=== PATIENT | male | born 1955 | race Caucasian/White ===

== ENCOUNTER 2018-07-31 09:00 | Emergency (ER) | payer MEDICAID ==
[2018-07-31 09:45] VITALS: BP 152/92
--- NOTE | 2018-07-31 14:19 | CT ---
DATE OF SERVICE: 07/31/18 CLINICAL DATA: Chest congestion, chronic cough. UNENHANCED CHEST CT: Multislice acquisition through the chest without IV contrast was performed. No priors. Breathing motion artifact degrades image quality. There is poorly defined ground glass opacity within the right upper lobe, most likely representing pneumonia. There are emphysematous changes throughout both lungs. There are mild atelectatic changes in both lung bases. The lungs otherwise clear. There is a small right pleural effusion. The heart size is within normal limits. There are coronary artery calcifications. No significant pericardial effusion. No aortic aneurysm. There is an enlarged lymph node in the retrocaval pretracheal space. It measures 13 mm in its short axis. There is also an enlarged lymph node in the subcarinal middle mediastinum measuring 21 mm in its short axis. These may be reactive. Other possibilities, including lymphoma or metastatic disease, should at least be considered. There is a small hiatal hernia. No other significant findings. IMPRESSION: Multiple findings as discussed above. Followup is recommended to confirm resolution. UNENHANCED ABDOMEN AND PELVIC CT: Multislice acquisition through the abdomen and pelvis without IV or oral contrast was performed. No priors. There is a small right pleural effusion. The unenhanced liver appears normal. The gallbladder appears normal. The spleen appears normal. The pancreas appears normal. The right and left adrenals appear normal. The right and left kidneys appear normal. No nephrocalcinosis or nephrolithiasis. No hydronephrosis or hydroureter. There is a small amount of fluid within the bladder. It appears normal. The prostate is mildly enlarged. There are calcifications within the prostate consistent with chronic prostatitis. The appendix is not dilated. No evidence of appendicitis. There is diverticulosis of the descending and sigmoid colon. No evidence of diverticulitis. There is a periumbilical ventral hernia containing fat. There is also an umbilical hernia containing fat. No evidence of incarceration. There are bilateral inguinal hernias containing fat. There is degenerative disk disease throughout the lower thoracic and lumbar spine. No aortic aneurysm. No free air. No free fluid. No dilated loops of bowel. No adenopathy. IMPRESSION: 1. Periumbilical ventral hernia containing fat. Umbilical hernia containing fat. Bilateral inguinal hernias containing fat. No evidence of incarceration. 2. Other findings as discussed above. [id number] [facility]
--- NOTE | 2018-07-31 14:48 | EDM.PDOC ---
ED HPI GENERAL MEDICAL PROBLEM - General Stated Complaint: abdominal pain Time Seen by Provider: 07/31/18 09:00 Source of Information: Reports: Patient History Limitations: Reports: No Limitations - History of Present Illness INITIAL COMMENTS - FREE TEXT/NARRATIVE: This is a 63yo M here for abdominal pain and discomfort. He has had slowing BM and states he feels obstructed and unable to go. His last BM was last night and states it was difficult and hard. He has had a hernia but states he feels it may have popped out more and is worried about the hernia causing him bowel issues and obstruction. He also has a cough and chest congestion that has been persistent and has not improved the past month. Onset: Unknown/Unsure Duration: Hour(s): Location: Reports: Abdomen Quality: Reports: Ache Severity: Moderate Improves with: Reports: None Worsens with: Reports: None Associated Symptoms: Reports: Loss of Appetite - Related Data Allergies Allergy/AdvReac Type Severity Reaction Status Date / Time No Known Allergies Allergy Verified 08/08/16 14:17 Home Meds: Home Meds Levothyroxine [Synthroid] 50 mcg PO ACBREAKFAST 04/06/15 [History] Ipratropium/Albuterol Sulfate [Iprat-Albut 0.5-3(2.5) mg/3 ml] 3 ml IN BID 07/31 [History] Testosterone Cypionate 400 mg IM ASDIRECTED 07/31/18 [History] ED ROS GENERAL - Review of Systems Review Of Systems: ROS reveals no pertinent complaints other than HPI. ED EXAM, GI/ABD - Physical Exam Exam: See Below Exam Limited By: No Limitations General Appearance: Alert, WD/WN Course - Vital Signs Last Recorded V/S: Last Vital Signs Temp 37.3 C 07/31/18 09:42 Pulse 112 H 07/31/18 09:42 Resp 24 H 07/31/18 09:42 BP 152/92 H 07/31/18 09:42 Pulse Ox 94 L 07/31/18 09:42 - Orders/Labs/Meds Labs: Laboratory Tests 07/31/18 07/31/18 Range/Units 09:45 09:45 WBC 11.8 H (4.0-11.0) K/uL RBC 6.73 H (4.50-6.50) M/uL Hgb 18.7 H* (13.0-18.0) g/dL Hct 57.3 H (40.0-54.0) % MCV 85 (76-96) fL MCH 27.8 (27.0-32.0) pg MCHC 32.6 (31.0-35.0) g/dL RDW 18.8 H (11.0-16.0) % Plt Count 157 (150-400) K/uL MPV 11.2 H (6.0-10.0) fL Neut % (Auto) 77.5 H (45.0-70.0) % Lymph % (Auto) 11.8 L (20.0-40.0) % [place] % (Auto) 9.8 (3.0-10.0) % Eos % (Auto) 0.8 L (1.0-5.0) % Baso % (Auto) 0.1 (0.0-0.5) % Neut # (Auto) 9.11 H (2.00-7.50) K/uL Lymph # (Auto) 1.39 L (1.50-4.00) K/uL [place] # (Auto) 1.15 H (0.20-0.80) K/uL Eos # (Auto) 0.09 (0.04-0.40) K/uL Baso # (Auto) 0.01 L (0.02-0.10) K/uL Sodium 140 (136-145) mmol/L Potassium 4.5 (3.5-5.1) mmol/L Chloride 103 (98-107) mmol/L Carbon Dioxide 27.8 (21.0-32.0) mmol/L Anion Gap 13.7 (5.0-15.0) mmol/L BUN 12 (8-26) mg/dL Creatinine 1.22 (0.70-1.30) mg/dL Est Cr Clr Drug Dosing TNP Estimated GFR (MDRD) 60 (>60) MLS/MIN BUN/Creatinine Ratio 9.8 (6-25) Glucose 128 H (74-100) mg/dL Calcium 8.7 (8.5-10.1) mg/dL Total Bilirubin 1.6 H D (0.0-1.0) mg/dL AST 29 (15-37) U/L ALT 15 (12-78) U/L Alkaline Phosphatase 68 (46-116) U/L Total Protein 7.9 (6.4-8.2) g/dL Albumin 3.7 (3.4-5.0) g/dL Globulin 4.2 (2.2-4.2) g/dL Albumin/Globulin Ratio 0.9 (0.8-2.0) Departure - Departure Time of Disposition: 10:30 Disposition: Home, Self-Care 01 Condition: Good Clinical Impression: Abdominal hernia without obstruction or gangrene Qualifiers: Hernia type: other abdominal hernia Qualified Code(s): K45.8 - Other specified abdominal hernia without obstruction or gangrene Pneumonia Qualifiers: Pneumonia type: due to unspecified organism Laterality: left Lung location: upper lobe of lung Qualified Code(s): J18.1 - Lobar pneumonia, unspecified organism - Discharge Information Instructions: Levofloxacin tablets Referrals: PCP,Unknown [Primary Care Provider] - Care Plan Goals: Take 750mg Levofloxin daily for 14 days. will let you know if any problems with CT of chest. Return to clinic if symptoms do not resolve. Drink plenty of fluids. - Problem List & Annotations (1) Abdominal hernia without obstruction or gangrene SNOMED Code(s): 61708153 Code(s): K46.9 - UNSPECIFIED ABDOMINAL HERNIA WITHOUT OBSTRUCTION OR GANGRENE Status: Acute Priority: High Qualifiers: Hernia type: other abdominal hernia Qualified Code(s): K45.8 - Other specified abdominal hernia without obstruction or gangrene (2) Pneumonia SNOMED Code(s): 184104981 Code(s): J18.9 - PNEUMONIA, UNSPECIFIED ORGANISM Status: Acute Priority: High Qualifiers: Pneumonia type: due to unspecified organism Laterality: left Lung location: upper lobe of lung Qualified Code(s): J18.1 - Lobar pneumonia, unspecified organism - Problem List Review Problem List Initiated/Reviewed/Updated: Yes - Assessment/Plan Plan: Counseled on hernia and pneumonia. Discussed management, monitoring and close f/ u. Discussed rtc or ER as directed for worsening or persistent symptoms. F/u as directed.
== END 2018-07-31 10:00 | disposition home or self-care (01) ==
LOC: LB.ED 09:00
DX: K45.8 Other specified abdominal hernia without obstruction or gangrene (principal); J18.1 Lobar pneumonia, unspecified organism
CPT/HCPCS: 36415; 71250; 74176; 80053; 85025; 99284-25

== ENCOUNTER 2018-09-14 14:14 | Emergency (ER) | payer MEDICAID ==
[2018-09-14 14:40] VITALS: BP 113/85
--- NOTE | 2018-09-14 17:10 | EDM.PDOC ---
ED HPI GENERAL MEDICAL PROBLEM - General Chief Complaint: Allergic Reaction Stated Complaint: HIVES Time Seen by Provider: 09/14/18 14:30 Source of Information: Reports: Patient History Limitations: Reports: No Limitations - History of Present Illness INITIAL COMMENTS - FREE TEXT/NARRATIVE: This is a 63yo M with a new onset rash of the body. He states it started a day ago and got worse. He did take some benadryl and that helped. He denies any breathing issues out of the normal, no other health concerns today. The rash is on the abdomen, back and arms. - Related Data Allergies Allergy/AdvReac Type Severity Reaction Status Date / Time No Known Allergies Allergy Verified 08/08/16 14:17 Home Meds: Home Meds Levothyroxine [Synthroid] 50 mcg PO ACBREAKFAST 04/06/15 [History] Ipratropium/Albuterol Sulfate [Iprat-Albut 0.5-3(2.5) mg/3 ml] 3 ml IN BID 07/31 [History] Testosterone Cypionate 400 mg IM ASDIRECTED 07/31/18 [History] ED ROS ALLERGIC REACTION - Review of Systems Review Of Systems: ROS reveals no pertinent complaints other than HPI. ED EXAM GENERAL NO PERIP PULSE - Physical Exam Exam: See Below Exam Limited By: No Limitations General Appearance: Alert, WD/WN, Mild Distress Ears: Normal External Exam Nose: Normal Inspection Throat/Mouth: Normal Inspection Head: Atraumatic, Normocephalic Neck: Normal Inspection, Supple, Non-Tender, Full Range of Motion Respiratory/Chest: No Respiratory Distress, Lungs Clear, Normal Breath Sounds, No Accessory Muscle Use, Chest Non-Tender Cardiovascular: Normal Peripheral Pulses, Regular Rate, Rhythm GI/Abdominal: Normal Bowel Sounds, Soft, Non-Tender Neurological: Alert, Oriented Psychiatric: Normal Affect, Normal Mood Skin Exam: Rash Lymphatic: No Adenopathy Course - Vital Signs Last Recorded V/S: Last Vital Signs Temp 36.4 C 09/14/18 14:32 Pulse 104 H 09/14/18 14:32 Resp 22 H 09/14/18 14:32 BP 113/85 09/14/18 14:32 Pulse Ox 96 09/14/18 14:32 Departure - Departure Time of Disposition: 15:00 Disposition: Home, Self-Care 01 Condition: Good Clinical Impression: Hives - Discharge Information Instructions: Montelukast oral tablets, Loratadine capsules or tablets Referrals: PCP,None [Primary Care Provider] - Forms: ED Department Discharge Additional Instructions: Take Singulair once a day, claritin twice a day, and take 50mg of Benadryl twice a day until the rash is better and you are feeling better. Continue your regualr home medications and follow up as needed. - Problem List & Annotations (1) Hives SNOMED Code(s): 509854727 Code(s): L50.9 - URTICARIA, UNSPECIFIED Status: Acute - Problem List Review Problem List Initiated/Reviewed/Updated: Yes - Assessment/Plan Plan: Counseled on supportive care and management. Meds sent to [facility]. Patient to f/u if symptoms worsen or persist.
== END 2018-09-14 14:44 | disposition home or self-care (01) ==
LOC: LB.ED 14:14
DX: L50.9 Urticaria, unspecified (principal); Z79.899 Other long term (current) drug therapy
CPT/HCPCS: 99282

== ENCOUNTER 2018-09-20 00:19 | Emergency (ER) | payer MEDICAID ==
[2018-09-20] MEDS ORDERED: predniSONE 10 MG Tab ONE (00:20)
[2018-09-20 00:44] VITALS: BP 127/89
[2018-09-20] MEDS ORDERED: methylPREDNISolone Sodium Succinate 125 MG/2 ML SDV IM ONE (01:12)
[2018-09-20] MEDS ORDERED: methylPREDNISolone Sodium Succinate 125 MG/2 ML SDV ONE (01:20)
--- NOTE | 2018-09-21 07:49 | EDM.PDOC ---
ED HPI GENERAL MEDICAL PROBLEM - General Chief Complaint: Skin Complaint Stated Complaint: EDEMATOUS LEGS, RASH Time Seen by Provider: 09/20/18 01:00 Source of Information: Reports: Patient History Limitations: Reports: No Limitations - History of Present Illness INITIAL COMMENTS - FREE TEXT/NARRATIVE: This is a 63yo M here for a worsening rash. It is on the trunk, abdomen, arms and legs. Not on the face, hands or feet. It started like hives and now appears worse with excoriations. He states he has been off phentermine and furosemide as those medications were thought to have started his hives. He has not tried anything new and has been taking benadryl which has been improving the symptoms. The rash is so sensitive he has to take all his clothes off and stand for relief. Onset: Gradual Duration: Day(s):, Getting Worse Location: Reports: Chest, Abdomen, Back, Upper Extremity, Left, Upper Extremity , Right, Lower Extremity, Left, Lower Extremity, Right Improves with: Reports: None Worsens with: Reports: None Generalized All Over Body Pain Score (Numeric/FACES): 8 - Related Data Allergies Allergy/AdvReac Type Severity Reaction Status Date / Time No Known Allergies Allergy Verified 09/20/18 00:36 Home Meds: Home Meds Levothyroxine [Synthroid] 50 mcg PO ACBREAKFAST 04/06/15 [History] Ipratropium/Albuterol Sulfate [Iprat-Albut 0.5-3(2.5) mg/3 ml] 3 ml IN Q4HR PRN 07/31/18 [History] Testosterone Cypionate 400 mg IM ASDIRECTED 07/31/18 [History] Loratadine 10 mg PO BID 09/20/18 [History] Montelukast Sodium 10 mg PO DAILY 09/20/18 [History] diphenhydrAMINE HCl [Banophen] 50 mg PO QPM 09/20/18 [History] Past Medical History HEENT History: Reports: Impaired Vision Respiratory History: Reports: COPD Gastrointestinal History: Reports: Chronic Constipation, Other (See Below) Other Gastrointestinal History: hernia Endocrine/Metabolic History: Reports: Hypothyroidism - Infectious Disease History Infectious Disease History: Reports: Hepatitis C - Past Surgical History HEENT Surgical History: Reports: None Respiratory Surgical History: Reports: None GI Surgical History: Reports: Hernia, Inguinal Social & Family History - Tobacco Use Smoking Status *Q: Former Smoker Used Tobacco, but Quit: Yes Month/Year Tobacco Last Used: 2005 - Recreational Drug Use Recreational Drug Use: No ED ROS GENERAL - Review of Systems Review Of Systems: ROS reveals no pertinent complaints other than HPI. ED EXAM, SKIN/RASH Exam: See Below Exam Limited By: No Limitations General Appearance: Alert, WD/WN, Moderate Distress Eye Exam: Bilateral Eye: EOMI, PERRL Ears: Normal External Exam Nose: Normal Inspection Throat/Mouth: Normal Inspection Head: Atraumatic, Normocephalic Neck: Normal Inspection Respiratory/Chest: No Respiratory Distress, Lungs Clear, Normal Breath Sounds Cardiovascular: Normal Peripheral Pulses, Regular Rate, Rhythm Peripheral Pulses: 2+: Dorsalis Pedis (L), Dorsalis Pedis (R) GI/Abdominal: Normal Bowel Sounds Back Exam: Normal Inspection Extremities: Normal Inspection, Normal Range of Motion Neurological: Alert, Oriented, CN II-XII Intact Psychiatric: Normal Affect, Normal Mood Skin: Rash, Other (blanching, maculopapular areas of urticaria and excoriations) Course - Vital Signs Last Recorded V/S: Last Vital Signs Temp 36.7 C 09/20/18 00:43 Pulse 103 H 09/20/18 00:43 Resp 20 09/20/18 00:43 BP 127/89 09/20/18 00:43 Pulse Ox 97 09/20/18 00:43 - Orders/Labs/Meds Meds: Medications Discontinued Medications Generic Name Dose Route Start Last Admin Trade Name Kell PRN Reason Stop Dose Admin Methylprednisolone Sodium Succinate 125 mg 09/20/18 01:12 09/20/18 01:33 Solu-Medrol IM 09/20/18 01:13 125 mg ONETIME ONE Administration Methylprednisolone Sodium Succinate Confirm 09/20/18 01:20 09/20/18 01:34 Solu-Medrol Administered 09/20/18 01:21 Not Given Dose 125 mg .ROUTE .STK-MED ONE Departure - Departure Time of Disposition: 02:00 Disposition: Home, Self-Care 01 Condition: Good Clinical Impression: Urticaria - Discharge Information Instructions: Hives, [id number], Prednisone tablets Referrals: PCP,None [Primary Care Provider] - Forms: ED Department Discharge Additional Instructions: Take Prednisone taper dose as prescribed. STOP Singulair and continue not taking the Furosemide. If this is not better by Friday come back be seen and Dr. Treviño will likely hospitalize you. You can try Calomine lotion or any cream with Lidocaine to help with Come back if you develop any chest pain, shortness of breath, difficulty swallowing, or fever above 100.4F. - Problem List & Annotations (1) Urticaria SNOMED Code(s): 155982849 Code(s): L50.9 - URTICARIA, UNSPECIFIED Status: Acute - Problem List Review Problem List Initiated/Reviewed/Updated: Yes - Assessment/Plan Plan: Counseled on concerns of rash turning into a Weiss-Lonnie syndrome or toxic dermal necrolysis. Discussed close monitoring and f/u in ER or clinic if symptoms persist or worse. Discussed immediate return if any sloughing of skin or changes. We will start prednisone and give Solumedrol IM injection. Discussed f/u as directed. Counseled on supportive care and management.
== END 2018-09-20 01:40 | disposition home or self-care (01) ==
LOC: LB.ED 00:19
DX: L50.9 Urticaria, unspecified (principal); J44.9 Chronic obstructive pulmonary disease, unspecified; E03.9 Hypothyroidism, unspecified; Z79.899 Other long term (current) drug therapy; Z87.891 Personal history of nicotine dependence
CPT/HCPCS: 96372; 99282; A9270-GY; J2930

== ENCOUNTER 2018-10-06 08:49 | Emergency (ER) | payer MEDICAID ==
[2018-10-06] MEDS ORDERED: Albuterol/Ipratropium 3.0-0.5 MG/3 ML Neb Soln ONE (09:25)
--- NOTE | 2018-10-06 10:38 | EDM.PDOC ---
ED HPI GENERAL MEDICAL PROBLEM - General Time Seen by Provider: 10/06/18 09:00 Source of Information: Reports: Patient History Limitations: Reports: No Limitations - History of Present Illness INITIAL COMMENTS - FREE TEXT/NARRATIVE: 63 year old male present to emergency room with shortness of breath, which he claims got worse today morning. Woke up and was getting ready to go to [place] for his pulmonary appointment when he started to feel short of breath. No chest pain or chest tightness. No nausea or vomiting. No fever or chills. Patient he claims that he has had progressive shortness of breath which started in May which has progressively got worse. He did have CT of the chest which shows B/l infiltrates. He did have [facility] evaluation today for bronchoscopy, but he could not make it there due to shortness of breath. Onset: Today, Sudden Onset Date: 10/06/18 Onset Time: 07:00 Duration: Improving Location: Reports: Chest Quality: Reports: Other (shortness of breath.) Severity: Mild Improves with: Reports: None Worsens with: Reports: None Associated Symptoms: Reports: Shortness of Breath. Denies: Confusion, Chest Pain, Cough, Fever/Chills, Headaches, Nausea/Vomiting, Rash, Seizure, Syncope, Weakness - Related Data Allergies Allergy/AdvReac Type Severity Reaction Status Date / Time No Known Allergies Allergy Verified 09/20/18 00:36 Home Meds: Home Meds Levothyroxine [Synthroid] 50 mcg PO ACBREAKFAST 04/06/15 [History] Ipratropium/Albuterol Sulfate [Iprat-Albut 0.5-3(2.5) mg/3 ml] 3 ml IN Q4HR PRN 07/31/18 [History] Testosterone Cypionate 400 mg IM ASDIRECTED 07/31/18 [History] Past Medical History HEENT History: Reports: Impaired Vision Respiratory History: Reports: COPD Gastrointestinal History: Reports: Chronic Constipation, Other (See Below) Other Gastrointestinal History: hernia Endocrine/Metabolic History: Reports: Hypothyroidism - Infectious Disease History Infectious Disease History: Reports: Hepatitis C - Past Surgical History HEENT Surgical History: Reports: None Respiratory Surgical History: Reports: None GI Surgical History: Reports: Hernia, Inguinal ED ROS GENERAL - Review of Systems Review Of Systems: See Below Constitutional: Denies: Fever, Chills, Malaise, Weakness HEENT: Denies: Rhinitis, Throat Swelling Respiratory: Reports: Shortness of Breath. Denies: Wheezing, Pleuritic Chest Pain, Cough, Sputum Cardiovascular: Denies: Chest Pain, Lightheadedness GI/Abdominal: Denies: Abdominal Pain, Nausea, Vomiting Musculoskeletal: Denies: Joint Pain, Joint Swelling Skin: Denies: Bruising, Pruritis, Rash ED EXAM, GENERAL - Physical Exam Exam: See Below Exam Limited By: No Limitations General Appearance: Alert, WD/WN, No Apparent Distress Eye Exam: Bilateral Eye: EOMI, PERRL Ears: Normal External Exam, Normal Canal, Hearing Grossly Normal, Normal TMs Ear Exam: Bilateral Ear: Auricle Normal, Canal Normal, TM normal Nose: Normal Inspection, Normal Mucosa, No Blood Throat/Mouth: Normal Inspection, Normal Lips, Normal Teeth, Normal Gums, Normal Oropharynx, Normal Voice, No Airway Compromise Head: Atraumatic, Normocephalic Neck: Normal Inspection, Supple, Non-Tender, Full Range of Motion Respiratory/Chest: No Respiratory Distress, No Accessory Muscle Use, Chest Non- Tender, Decreased Breath Sounds (B/L base and also anterior chest) Cardiovascular: Normal Peripheral Pulses, Regular Rate, Rhythm, No Edema, No Gallop, No JVD, No Murmur, No Rub GI/Abdominal: Normal Bowel Sounds, Soft, Non-Tender, No Organomegaly, No Distention, No Abnormal Bruit, No Mass Extremities: Other (Chronic non pitting edema of the legs which appears chronic with lymphedema. there is ichytotic changes in the skin over the leg.) Neurological: Alert, Oriented, CN II-XII Intact, Normal Cognition EKG INTERPRETATION EKG Date: 10/06/18 Rhythm: NSR Rate (Beats/Min): 107 [place]: Normal P-Wave: Present QRS: Normal ST-T: Normal Course - Vital Signs Text/Narrative:: 63 year old male presents to emergency room with shortness of breath. His respiratory rate is normal around 16 breath per minutes. Does not appear in any respiratory distress. He is morbidly obese. His EKG does not show any acute changes. He did receive Duoneb one treatment. Labs order. Pt's CBC is normal, CMP show creat at 1.4 and normal BUN and electrolytes. D- Dimer is 227o and his BNP is 6874. His troponin is negative. Pt has been very stable in the emergency room. He does not appear to be any discomfort or shortness of breath presently. His elevated BNP might be related to chronic CHF , as he has had lower extremity edema for a long time now and has tried Lasix and had reaction. He did have Ct angiogram of the chest, which is negative for Pulmonary embolism. Pt did receive Normal bolus post CT as his GFR is 51 ml. Pt is stable and symptomatic. Pt reassured that the work up is negative. His shortness of breath is chronic. He might have had mild worsening in the morning , but has remained stable in the emergency room. Considering his elevated BNP , and chronic lower extremity edema, I have started him on spironolactone 50mg in the morning daily. Also will get [facility] cardiogram of the heart done as outpatient. I have advised him to followup with his regional economist, and should [facility]heck. Last Recorded V/S: Last Vital Signs Temp 98 F 10/06/18 12:26 Pulse 99 10/06/18 12:26 Resp 12 10/06/18 12:26 BP 120/106 H 10/06/18 12:26 Pulse Ox 97 10/06/18 12:26 - Orders/Labs/Meds Orders: Active Orders 24 hr Category Date Time Status EKG Documentation Completion [RC] ASDIRECTED Care 10/06/18 09:35 Active Iodixanol [Visipaque 320] Med 10/06/18 12:30 Active 100 ml IV . DIRECTED Sodium Chloride 0.9% [Normal Saline] 1,000 ml Med 10/06/18 12:30 Active IV ASDIRECTED Medication Orders Sodium Chloride (Normal Saline) 1,000 mls @ 175 mls/hr IV ASDIRECTED HANNAH Iodixanol (Visipaque 320) 100 ml IV . DIRECTED HANNAH Labs: Laboratory Tests 10/06/18 10/06/18 10/06/18 Range/Units 09:34 09:34 10:00 WBC 10.9 (4.0-11.0) K/uL RBC 6.12 (4.50-6.50) M/uL Hgb 17.1 (13.0-18.0) g/dL Hct 52.9 (40.0-54.0) % MCV 86 (76-96) fL MCH 27.9 (27.0-32.0) pg MCHC 32.3 (31.0-35.0) g/dL RDW 21.2 H (11.0-16.0) % Plt Count 103 L D (150-400) K/uL MPV 11.9 H (6.0-10.0) fL Neut % (Auto) 81.8 H (45.0-70.0) % Lymph % (Auto) 9.0 L (20.0-40.0) % [place] % (Auto) 8.0 (3.0-10.0) % Eos % (Auto) 1.0 (1.0-5.0) % Baso % (Auto) 0.2 (0.0-0.5) % Neut # (Auto) 8.89 H (2.00-7.50) K/uL Lymph # (Auto) 0.98 L (1.50-4.00) K/uL [place] # (Auto) 0.87 H (0.20-0.80) K/uL Eos # (Auto) 0.11 (0.04-0.40) K/uL Baso # (Auto) 0.02 (0.02-0.10) K/uL PT 13.3 H D (9.0-11.5) sec INR 1.4 D (1.0-3.5) APTT 25.1 (24.4-33.2) SECONDS D-Dimer, Quantitative (0-400) ng/mL Sodium (136-145) mmol/L Potassium (3.5-5.1) mmol/L Chloride (98-107) mmol/L Carbon Dioxide (21.0-32.0) mmol/L Anion Gap (5.0-15.0) mmol/L BUN (8-26) mg/dL Creatinine (0.70-1.30) mg/dL Est Cr Clr Drug Dosing Estimated GFR (MDRD) (>60) MLS/MIN BUN/Creatinine Ratio (6-25) Glucose (74-100) mg/dL Calcium (8.5-10.1) mg/dL Total Bilirubin (0.0-1.0) mg/dL AST (15-37) U/L ALT (12-78) U/L Alkaline Phosphatase (46-116) U/L Troponin I (0.000-0.060) ng/mL B-Natriuretic Peptide 6874 H D (0-125) pg/mL Total Protein (6.4-8.2) g/dL Albumin (3.4-5.0) g/dL Globulin (2.2-4.2) g/dL Albumin/Globulin Ratio (0.8-2.0) 10/06/18 10/06/18 Range/Units 10:00 10:37 WBC (4.0-11.0) K/uL RBC (4.50-6.50) M/uL Hgb (13.0-18.0) g/dL Hct (40.0-54.0) % MCV (76-96) fL MCH (27.0-32.0) pg MCHC (31.0-35.0) g/dL RDW (11.0-16.0) % Plt Count (150-400) K/uL MPV (6.0-10.0) fL Neut % (Auto) (45.0-70.0) % Lymph % (Auto) (20.0-40.0) % [place] % (Auto) (3.0-10.0) % Eos % (Auto) (1.0-5.0) % Baso % (Auto) (0.0-0.5) % Neut # (Auto) (2.00-7.50) K/uL Lymph # (Auto) (1.50-4.00) K/uL [place] # (Auto) (0.20-0.80) K/uL Eos # (Auto) (0.04-0.40) K/uL Baso # (Auto) (0.02-0.10) K/uL PT (9.0-11.5) sec INR (1.0-3.5) APTT (24.4-33.2) SECONDS D-Dimer, Quantitative 2270 H (0-400) ng/mL Sodium 141 (136-145) mmol/L Potassium 4.8 (3.5-5.1) mmol/L Chloride 103 (98-107) mmol/L Carbon Dioxide 29.5 (21.0-32.0) mmol/L Anion Gap 13.3 (5.0-15.0) mmol/L BUN 17 D (8-26) mg/dL Creatinine 1.40 H (0.70-1.30) mg/dL Est Cr Clr Drug Dosing TNP Estimated GFR (MDRD) 51 L (>60) MLS/MIN BUN/Creatinine Ratio 12.1 (6-25) Glucose 106 H (74-100) mg/dL Calcium 8.3 L (8.5-10.1) mg/dL Total Bilirubin 2.7 H D (0.0-1.0) mg/dL AST 28 (15-37) U/L ALT 18 (12-78) U/L Alkaline Phosphatase 69 (46-116) U/L Troponin I 0.046 D (0.000-0.060) ng/mL B-Natriuretic Peptide (0-125) pg/mL Total Protein 6.8 (6.4-8.2) g/dL Albumin 3.0 L (3.4-5.0) g/dL Globulin 3.8 (2.2-4.2) g/dL Albumin/Globulin Ratio 0.8 (0.8-2.0) Meds: Medications Generic Name Dose Route Start Last Admin Trade Name Freq PRN Reason Stop Dose Admin Sodium Chloride 1,000 mls @ 175 mls/hr 10/06/18 12:30 Normal Saline IV ASDIRECTED HANNAH Iodixanol 100 ml 10/06/18 12:30 Visipaque 320 IV . DIRECTED HANNAH Discontinued Medications Generic Name Dose Route Start Last Admin Trade Name Freq PRN Reason Stop Dose Admin Albuterol/Ipratropium Confirm 10/06/18 09:25 10/06/18 09:30 Duoneb 3.0-0.5 Mg/3 Ml Administered 10/06/18 09:26 3 ml Dose Administration 3 ml .ROUTE .STK-MED ONE Sodium Chloride 50 ml 10/06/18 12:26 Normal Saline FLUSH 10/06/18 12:27 ONETIME ONE Departure - Departure Time of Disposition: 14:30 Disposition: Home, Self-Care 01 Condition: Fair Clinical Impression: Shortness of breath, CHF (congestive heart failure), NYHA class I - Discharge Information *PRESCRIPTION DRUG MONITORING PROGRAM REVIEWED*: Not Applicable *COPY OF PRESCRIPTION DRUG MONITORING REPORT IN PATIENT DONALD: Not Applicable Referrals: PCP,None [Primary Care Provider] - Additional Instructions: Pt is stable and symptomatic. Pt reassured that the work up is negative. His shortness of breath is chronic. He might have had mild worsening in the morning , but has remained stable in the emergency room. Considering his elevated BNP , and chronic lower extremity edema, I have started him on spironolactone 50mg in the morning daily. Also will get [facility] cardiogram of the heart done as outpatient. I have advised him to followup with his regional economist, and should followup [facility] next week for recheck. - Problem List & Annotations (1) CHF (congestive heart failure), NYHA class I SNOMED Code(s): 48302281, 179628173 Code(s): I50.9 - HEART FAILURE, UNSPECIFIED Status: Acute Current Visit: Yes (2) Shortness of breath SNOMED Code(s): 778876620 Code(s): R06.02 - SHORTNESS OF BREATH Status: Acute Current Visit: Yes - Problem List Review Problem List Initiated/Reviewed/Updated: Yes - My Orders Last 24 Hours: My Active Orders 10/06/18 09:35 EKG Documentation Completion [RC] ASDIRECTED 10/06/18 12:30 Iodixanol [Visipaque 320] 100 ml IV . DIRECTED Sodium Chloride 0.9% [Normal Saline] 1,000 ml IV ASDIRECTED - Assessment/Plan Last 24 Hours: My Active Orders 10/06/18 09:35 EKG Documentation Completion [RC] ASDIRECTED 10/06/18 12:30 Iodixanol [Visipaque 320] 100 ml IV . DIRECTED Sodium Chloride 0.9% [Normal Saline] 1,000 ml IV ASDIRECTED Assessment:: Shortness of breath CHF Plan: Pt is stable and symptomatic. Pt reassured that the work up is negative. His shortness of breath is chronic. He might have had mild worsening in the morning , but has remained stable in the emergency room. Considering his elevated BNP , and chronic lower extremity edema, I have started him on spironolactone 50mg in the morning daily. Also will get [facility] cardiogram of the heart done as outpatient. I have advised him to followup with his regional economist, and should followup [facility] next week for recheck.
[2018-10-06] MEDS ORDERED: Sodium Chloride 0.9% 50 ML SDV FLUSH ONE (12:26)
[2018-10-06 12:30] VITALS: BP 120/106
[2018-10-06] MEDS ORDERED: Iodixanol 652 MG/ML 100 ML Bottle IV SCH (12:30)
[2018-10-06] MEDS ORDERED: Sodium Chloride 0.9% 1,000 ML IV SCH (12:30)
--- NOTE | 2018-10-06 13:48 | CR ---
DATE OF SERVICE: 10/06/18 CLINICAL DATA: SOB lower leg edema PA AND LATERAL CHEST: Comparison is made to a prior exam dated 11/12/13. The heart is enlarged. It has increased in size from the prior study. There is pulmonary vascular congestion and interstitial infiltrates throughout both lungs. Congestive failure is suspected. There are poorly defined ground-glass opacities in the left upper lobe and in both lower lungs with areas of consolidation bilaterally. Pneumonia is suspected. There is blunting of both costophrenic angles, consistent with bilateral pleural effusions. No other significant interval changes from the prior study. [id number] [facility]
--- NOTE | 2018-10-06 14:22 | CT ---
DATE OF SERVICE: 10/06/2018 CLINICAL DATA: Elevated D-Dimer Enhanced acquisition through the chest with IV contrast was performed. No priors. No evidence of PE. No pneumothorax. No aortic aneurysm or dissection. There are moderate-sized bilateral pleural effusions with loculated pleural effusions anteriorly bilaterally. There are patchy groundglass opacities with areas of consolidation in both upper lobes. There are also poorly defined groundglass opacities in the right middle lobe and left lower lobe with areas of consolidation in both lower lobes and within the right lobe. Pneumonia suspected. There are scattered reticular opacities throughout both lungs and pulmonary edema with congestive failure is suspected. The heart is enlarged. No significant pericardial effusions. There is degenerative disc disease throughout the thoracic spine. There is extensive subcutaneous edema throughout the lower chest and upper abdomen. Impression: Negative for PE. Other findings as discussed above. MTDD
== END 2018-10-06 15:00 | disposition home or self-care (01) ==
LOC: LB.ED 08:49
DX: I50.9 Heart failure, unspecified (principal); J44.9 Chronic obstructive pulmonary disease, unspecified; E03.9 Hypothyroidism, unspecified; Z79.899 Other long term (current) drug therapy
CPT/HCPCS: 36415; 71046; 71260; 80053; 83880; 84484; 85025; 85379; 85610; 85730; 93005; 96360; 96361; 99285-25; J7030; J7620-GY

== ENCOUNTER 2018-10-15 16:57 | Inpatient (IN) | payer MEDICAID ==
--- NOTE | 2018-10-15 18:50 | EDM.PDOC ---
ED HPI GENERAL MEDICAL PROBLEM - General Chief Complaint: Cardiovascular Problem Stated Complaint: ILL Time Seen by Provider: 10/15/18 18:08 Source of Information: Reports: Patient, EMS, RN History Limitations: Reports: No Limitations - History of Present Illness INITIAL COMMENTS - FREE TEXT/NARRATIVE: 63 yr male presents to ER with increase in shortness of breath and swelling to legs and weeping clear fluid from legs. Pt notes dark colored urine, he has been taking sips of fluid and restricting his intake to help with the swelling in the legs. He states a rash started with taking Phentermine and Lasix and doesn't know which started the rash. States he did lose 50 # with use of the Phentermine. He was taking Spironolactone for the swelling and shortness of breath and didn't notice any changes in the swelling of the legs, so he did quit taking this. He was seen in the ER about 9 days ago and had a chest x-ray , chest CT, and lab work. The chest CT was negative for PE. He lives alone, has no pets, but states the mosquitoes have been bad at his house. He did have a pulmonology appointment at [facility] and bronchoscopy was completed and no results in the record at this time. He is taking a Prednisone taper at this time. He did have an ECHO done in 2018 with about 50% EF at the time. A repeat ECHO was ordered, but hasn't been able to complete this, yet. He does have oxygen on at 3 lpm per N/C and does have home oxygen. He is able to ambulate short distances. Generalized Pain Score (Numeric/FACES): 3 - Related Data Allergies Allergy/AdvReac Type Severity Reaction Status Date / Time furosemide [From Lasix] Allergy Rash Verified 10/15/18 18:11 phentermine Allergy Edema Verified 10/15/18 18:11 Home Meds: Home Meds Levothyroxine [Synthroid] 50 mcg PO ACBREAKFAST 04/06/15 [History] Ipratropium/Albuterol Sulfate [Iprat-Albut 0.5-3(2.5) mg/3 ml] 3 ml IN Q4HR PRN 07/31/18 [History] Testosterone Cypionate 400 mg IM ASDIRECTED 07/31/18 [History] predniSONE [Prednisone] 50 mg PO DAILY 10/15/18 [History] Past Medical History HEENT History: Reports: Impaired Vision Respiratory History: Reports: COPD Gastrointestinal History: Reports: Chronic Constipation, Other (See Below) Other Gastrointestinal History: hernia Genitourinary History: Reports: Other (See Below) Other Genitourinary History: hypogonadism Endocrine/Metabolic History: Reports: Hypothyroidism - Infectious Disease History Infectious Disease History: Reports: Hepatitis C - Past Surgical History HEENT Surgical History: Reports: None Respiratory Surgical History: Reports: None GI Surgical History: Reports: Hernia, Inguinal Male Surgical History: Reports: None ED ROS GENERAL - Review of Systems Review Of Systems: See Below Constitutional: Denies: Fever, Chills Respiratory: Reports: Shortness of Breath, Cough. Denies: Wheezing Cardiovascular: Reports: Dyspnea on Exertion, Edema. Denies: Chest Pain GI/Abdominal: Reports: Constipation. Denies: Abdominal Pain, Diarrhea, Nausea : Reports: Other (decrease in urination for about 1 week and restricting intake) Skin: Reports: Other (swelling and weeping legs with edema) Psychiatric: Denies: Suicidal Ideation Hematologic/Lymphatic: Reports: No Symptoms ED EXAM, GENERAL - Physical Exam Exam: See Below Exam Limited By: No Limitations General Appearance: Alert, Mild Distress Throat/Mouth: Normal Inspection, Normal Lips, Normal Voice, No Airway Compromise Head: Atraumatic, Normocephalic Respiratory/Chest: Decreased Breath Sounds. No: Crackles, Rhonchi, Wheezing Cardiovascular: Regular Rate, Rhythm, Other (weeping swelling and edema to lower extremities, bilaterally) GI/Abdominal: Soft, Other (bowel sounds noted X 4 quadrant) Extremities: Pedal Edema Neurological: Alert, Oriented, Normal Cognition Psychiatric: Normal Affect, Normal Mood Skin Exam: Warm, Other (clear weeping drainage) Course - Vital Signs Last Recorded V/S: Last Vital Signs Temp 98.4 F 10/15/18 18:02 Pulse 107 H 10/15/18 18:02 Resp 32 H 10/15/18 18:02 BP 115/78 10/15/18 18:02 Pulse Ox 94 L 10/15/18 18:02 - Orders/Labs/Meds Orders: Active Orders 24 hr Category Date Time Status Mcgrath Catheter Insertion [Insert Urinary Catheter] [OM. Care 10/15/18 19:15 Ordered PC] Q24H Urinary Catheter Assessment [RC] ASDIRECTED Care 10/15/18 19:16 Active Chest 1V Frontal [CR] Stat Exams 10/15/18 18:16 Taken Sodium Chloride 0.9% [Saline Flush] Med 10/15/18 19:16 Active 10 ml FLUSH ASDIRECTED PRN Saline Lock Insert [OM.PC] Routine Oth 10/15/18 19:16 Ordered Medication Orders Sodium Chloride (Saline Flush) 10 ml FLUSH ASDIRECTED PRN PRN Reason: Keep Vein Open Labs: Laboratory Tests 10/15/18 10/15/18 10/15/18 Range/Units 18:20 18:20 18:20 WBC 13.0 H (4.0-11.0) K/uL RBC 5.90 (4.50-6.50) M/uL Hgb 16.5 (13.0-18.0) g/dL Hct 51.2 (40.0-54.0) % MCV 87 (76-96) fL MCH 28.0 (27.0-32.0) pg MCHC 32.2 (31.0-35.0) g/dL RDW 21.5 H (11.0-16.0) % Plt Count 120 L (150-400) K/uL MPV 11.7 H (6.0-10.0) fL Neut % (Auto) 87.3 H (45.0-70.0) % Lymph % (Auto) 4.9 L (20.0-40.0) % [place] % (Auto) 7.4 (3.0-10.0) % Eos % (Auto) 0.2 L (1.0-5.0) % Baso % (Auto) 0.2 (0.0-0.5) % Neut # (Auto) 11.34 H (2.00-7.50) K/uL Lymph # (Auto) 0.64 L (1.50-4.00) K/uL [place] # (Auto) 0.96 H (0.20-0.80) K/uL Eos # (Auto) 0.02 L (0.04-0.40) K/uL Baso # (Auto) 0.02 (0.02-0.10) K/uL Sodium 140 (136-145) mmol/L Potassium 5.1 (3.5-5.1) mmol/L Chloride 102 (98-107) mmol/L Carbon Dioxide 31.9 (21.0-32.0) mmol/L Anion Gap 11.2 (5.0-15.0) mmol/L BUN 41 H D (8-26) mg/dL Creatinine 0.59 L D (0.70-1.30) mg/dL Est Cr Clr Drug Dosing TNP Estimated GFR (MDRD) > 60 (>60) MLS/MIN BUN/Creatinine Ratio 69.5 H (6-25) Glucose 136 H (74-100) mg/dL Lactic Acid 2.34 H (0.90-1.70) mmol/L Calcium 9.0 (8.5-10.1) mg/dL Total Bilirubin 2.2 H (0.0-1.0) mg/dL AST 29 (15-37) U/L ALT 20 (12-78) U/L Alkaline Phosphatase 73 (46-116) U/L B-Natriuretic Peptide (0-125) pg/mL Total Protein 6.6 (6.4-8.2) g/dL Albumin 2.8 L (3.4-5.0) g/dL Globulin 3.8 (2.2-4.2) g/dL Albumin/Globulin Ratio 0.7 L (0.8-2.0) Urine Color Urine Appearance (CLEAR) Urine pH (5.0-8.0) Ur Specific [place] (1.003-1.030) Urine Protein (NEGATIVE) mg/dL Urine Glucose (UA) (NEGATIVE) mg/dL Urine Ketones (NEGATIVE) mg/dL Urine Occult Blood (NEGATIVE) Urine Nitrite (NEGATIVE) Urine Bilirubin (NEGATIVE) Urine Urobilinogen (0.2-1.0) E.U./dL Ur Leukocyte Esterase (NEGATIVE) Urine RBC /HPF Urine WBC /HPF Ur Squamous Epith Cells /HPF Urine Bacteria /HPF 10/15/18 10/15/18 Range/Units 18:20 18:40 WBC (4.0-11.0) K/uL RBC (4.50-6.50) M/uL Hgb (13.0-18.0) g/dL Hct (40.0-54.0) % MCV (76-96) fL MCH (27.0-32.0) pg MCHC (31.0-35.0) g/dL RDW (11.0-16.0) % Plt Count (150-400) K/uL MPV (6.0-10.0) fL Neut % (Auto) (45.0-70.0) % Lymph % (Auto) (20.0-40.0) % [place] % (Auto) (3.0-10.0) % Eos % (Auto) (1.0-5.0) % Baso % (Auto) (0.0-0.5) % Neut # (Auto) (2.00-7.50) K/uL Lymph # (Auto) (1.50-4.00) K/uL [place] # (Auto) (0.20-0.80) K/uL Eos # (Auto) (0.04-0.40) K/uL Baso # (Auto) (0.02-0.10) K/uL Sodium (136-145) mmol/L Potassium (3.5-5.1) mmol/L Chloride (98-107) mmol/L Carbon Dioxide (21.0-32.0) mmol/L Anion Gap (5.0-15.0) mmol/L BUN (8-26) mg/dL Creatinine (0.70-1.30) mg/dL Est Cr Clr Drug Dosing Estimated GFR (MDRD) (>60) MLS/MIN BUN/Creatinine Ratio (6-25) Glucose (74-100) mg/dL Lactic Acid (0.90-1.70) mmol/L Calcium (8.5-10.1) mg/dL Total Bilirubin (0.0-1.0) mg/dL AST (15-37) U/L ALT (12-78) U/L Alkaline Phosphatase (46-116) U/L B-Natriuretic Peptide 99681 H D (0-125) pg/mL Total Protein (6.4-8.2) g/dL Albumin (3.4-5.0) g/dL Globulin (2.2-4.2) g/dL Albumin/Globulin Ratio (0.8-2.0) Urine Color Yellow Urine Appearance Clear (CLEAR) Urine pH 5.5 (5.0-8.0) Ur Specific [place] 1.025 (1.003-1.030) Urine Protein 100 H (NEGATIVE) mg/dL Urine Glucose (UA) Negative (NEGATIVE) mg/dL Urine Ketones Negative (NEGATIVE) mg/dL Urine Occult Blood Trace-intact H (NEGATIVE) Urine Nitrite Negative (NEGATIVE) Urine Bilirubin Small H (NEGATIVE) Urine Urobilinogen 1.0 (0.2-1.0) E.U./dL Ur Leukocyte Esterase Negative (NEGATIVE) Urine RBC 0-5 H /HPF Urine WBC Not seen /HPF Ur Squamous Epith Cells Few /HPF Urine Bacteria Not seen /HPF Meds: Medications Generic Name Dose Route Start Last Admin Trade Name Freq PRN Reason Stop Dose Admin Sodium Chloride 10 ml 10/15/18 19:16 Saline Flush FLUSH ASDIRECTED PRN Keep Vein Open Discontinued Medications Generic Name Dose Route Start Last Admin Trade Name Freq PRN Reason Stop Dose Admin Bumetanide 1 mg 10/15/18 19:13 Bumex IVPUSH 10/15/18 19:14 ONETIME ONE Bumetanide Confirm 10/15/18 19:22 Bumex Administered 10/15/18 19:23 Dose 1 mg .ROUTE .STK-MED ONE Lidocaine HCl Confirm 10/15/18 19:22 Xylocaine 2% Jelly Administered 10/15/18 19:23 Dose 5 ml .ROUTE .STK-MED ONE Departure - Departure Time of Disposition: 19:45 Disposition: Admitted As Inpatient 65 Condition: Fair Clinical Impression: CHF (congestive heart failure), NYHA class I, Shortness of breath, Swelling of both lower extremities Referrals: PCP,None [Primary Care Provider] - Forms: ED Department Discharge - Problem List & Annotations (1) Shortness of breath SNOMED Code(s): 807575526 Code(s): R06.02 - SHORTNESS OF BREATH Status: Acute Current Visit: Yes (2) CHF (congestive heart failure), NYHA class I SNOMED Code(s): 03297981, 449452398 Code(s): I50.9 - HEART FAILURE, UNSPECIFIED Status: Acute Current Visit: Yes - Problem List Review Problem List Initiated/Reviewed/Updated: Yes - My Orders Last 24 Hours: My Active Orders 10/15/18 18:16 Chest 1V Frontal [CR] Stat 10/15/18 19:15 Mcgrath Catheter Insertion [Insert Urinary Catheter] [OM.PC] Q24H 10/15/18 19:16 Urinary Catheter Assessment [RC] ASDIRECTED Sodium Chloride 0.9% [Saline Flush] 10 ml FLUSH ASDIRECTED PRN Saline Lock Insert [OM.PC] Routine - Assessment/Plan Last 24 Hours: My Active Orders 10/15/18 18:16 Chest 1V Frontal [CR] Stat 10/15/18 19:15 Mcgrath Catheter Insertion [Insert Urinary Catheter] [OM.PC] Q24H 10/15/18 19:16 Urinary Catheter Assessment [RC] ASDIRECTED Sodium Chloride 0.9% [Saline Flush] 10 ml FLUSH ASDIRECTED PRN Saline Lock Insert [OM.PC] Routine Plan: Admit this 63 yr male with shortness of breath and CHF. Chest x-ray and lab completed with BNP elevated and enlarged heart noted per x-ray. Symptoms have been progressively worsening for the last 2 to 2.5 months. He did have a rash to the abdomen and this is improved. He is taking a prednisone taper and took the last dose of 50mg today. He does have home oxygen, having no pain, but achiness to legs with standing. He has been restricting the fluid intake at home and did stop the Spironolactone a few days ago, as he didn't think it was helping. Now the swelling to the legs has progressed and the legs are weeping behind the right knee and to the ruth of the left leg. Will admit and start Bumex IV and mcgrath catheter and recheck labs in am.
[2018-10-15] MEDS ORDERED: Bumetanide 1 MG/4 ML MDV IVPUSH ONE ×2 (19:13→20:16)
[2018-10-15] MEDS ORDERED: Lidocaine 2% Jelly 5 ML Urojet MUCMEM ONE (19:22)
[2018-10-15] MEDS ORDERED: Bumetanide 1 MG/4 ML MDV ONE (19:22)
[2018-10-15] MEDS ORDERED: Lidocaine 2% Jelly 5 ML Urojet ONE (19:22)
[2018-10-15] MEDS: Sodium Chloride 0.9% 10 ML Syringe FLUSH PRN (22:40)
[2018-10-16] MEDS: Levothyroxine 50 MCG Tab PO SCH (07:59)
[2018-10-16] MEDS: predniSONE 10 MG Tab PO SCH (08:01)
[2018-10-16] MEDS ORDERED: Bumetanide 1 MG/4 ML MDV IVPUSH ONE (13:45)
--- NOTE | 2018-10-16 14:52 | CR ---
Date of Service: 10/15/18 Clinical Data: shortness of breath AP PORTABLE CHEST: Comparison is made to a prior exam dated 10/06/18. The heart remains enlarged, unchanged. There is pulmonary vascular congestion and bilateral interstitial edema with progression from the prior exam. There are densities in both lower lungs consistent with basilar atelectasis or infiltrate. The lung bases do appear slightly clearer than on the prior exam. There is blunting of both costophrenic angles consistent with bilateral pleural effusions. The exam is otherwise unchanged from the prior. [id number] [facility]
--- NOTE | 2018-10-16 16:59 | PCM.PN ---
- General Info Date of Service: 10/16/18 Admission Dx/Problem (Free Text): shortness of breath, swelling in legs Subjective Update: Pt reports feeling better and less shortness of breath and decrease in swelling to abdomen and legs Functional Status: Reports: Tolerating Diet, Incentive Spirometry - Review of Systems General: Reports: No Symptoms HEENT: Reports: No Symptoms Pulmonary: Reports: Cough Cardiovascular: Reports: Dyspnea on Exertion, Edema Gastrointestinal: Reports: Other (BM today) Genitourinary: Reports: Other (indwelling catheter) Musculoskeletal: Reports: Other (some pain to right leg, stiffness) Skin: Reports: Other (weeping legs) Neurological: Reports: No Symptoms Psychiatric: Reports: No Symptoms - Patient Data Vitals - Most Recent: Last Vital Signs Temp 97.7 F 10/16/18 12:00 Pulse 96 10/16/18 12:00 Resp 18 10/16/18 12:00 BP 112/93 H 10/16/18 12:00 Pulse Ox 97 10/16/18 12:00 Weight - Most Recent: 342 lb 9.6 oz I&O - Last 24 Hours: Intake & Output 10/16/18 10/16/18 10/16/18 06:59 14:59 22:59 Intake Total 750 Output Total 3800 Balance -3050 Lab Results Last 24 Hours: Laboratory Results - last 24 hr 10/15/18 10/15/18 10/15/18 Range/Units 18:20 18:20 18:20 WBC 13.0 H (4.0-11.0) K/uL RBC 5.90 (4.50-6.50) M/uL Hgb 16.5 (13.0-18.0) g/dL Hct 51.2 (40.0-54.0) % MCV 87 (76-96) fL MCH 28.0 (27.0-32.0) pg MCHC 32.2 (31.0-35.0) g/dL RDW 21.5 H (11.0-16.0) % Plt Count 120 L (150-400) K/uL MPV 11.7 H (6.0-10.0) fL Neut % (Auto) 87.3 H (45.0-70.0) % Lymph % (Auto) 4.9 L (20.0-40.0) % [place] % (Auto) 7.4 (3.0-10.0) % Eos % (Auto) 0.2 L (1.0-5.0) % Baso % (Auto) 0.2 (0.0-0.5) % Neut # (Auto) 11.34 H (2.00-7.50) K/uL Lymph # (Auto) 0.64 L (1.50-4.00) K/uL [place] # (Auto) 0.96 H (0.20-0.80) K/uL Eos # (Auto) 0.02 L (0.04-0.40) K/uL Baso # (Auto) 0.02 (0.02-0.10) K/uL APTT (24.4-33.2) SECONDS Sodium 140 (136-145) mmol/L Potassium 5.1 (3.5-5.1) mmol/L Chloride 102 (98-107) mmol/L Carbon Dioxide 31.9 (21.0-32.0) mmol/L Anion Gap 11.2 (5.0-15.0) mmol/L BUN 41 H D (8-26) mg/dL Creatinine 0.59 L D (0.70-1.30) mg/dL Est Cr Clr Drug Dosing TNP Estimated GFR (MDRD) > 60 (>60) MLS/MIN BUN/Creatinine Ratio 69.5 H (6-25) Glucose 136 H (74-100) mg/dL Lactic Acid 2.34 H (0.90-1.70) mmol/L Calcium 9.0 (8.5-10.1) mg/dL Total Bilirubin 2.2 H (0.0-1.0) mg/dL AST 29 (15-37) U/L ALT 20 (12-78) U/L Alkaline Phosphatase 73 (46-116) U/L B-Natriuretic Peptide (0-125) pg/mL Total Protein 6.6 (6.4-8.2) g/dL Albumin 2.8 L (3.4-5.0) g/dL Globulin 3.8 (2.2-4.2) g/dL Albumin/Globulin Ratio 0.7 L (0.8-2.0) Urine Color Urine Appearance (CLEAR) Urine pH (5.0-8.0) Ur Specific [place] (1.003-1.030) Urine Protein (NEGATIVE) mg/dL Urine Glucose (UA) (NEGATIVE) mg/dL Urine Ketones (NEGATIVE) mg/dL Urine Occult Blood (NEGATIVE) Urine Nitrite (NEGATIVE) Urine Bilirubin (NEGATIVE) Urine Urobilinogen (0.2-1.0) E.U./dL Ur Leukocyte Esterase (NEGATIVE) Urine RBC /HPF Urine WBC /HPF Ur Squamous Epith Cells /HPF Urine Bacteria /HPF 10/15/18 10/15/18 10/16/18 Range/Units 18:20 18:40 07:05 WBC (4.0-11.0) K/uL RBC (4.50-6.50) M/uL Hgb (13.0-18.0) g/dL Hct (40.0-54.0) % MCV (76-96) fL MCH (27.0-32.0) pg MCHC (31.0-35.0) g/dL RDW (11.0-16.0) % Plt Count (150-400) K/uL MPV (6.0-10.0) fL Neut % (Auto) (45.0-70.0) % Lymph % (Auto) (20.0-40.0) % [place] % (Auto) (3.0-10.0) % Eos % (Auto) (1.0-5.0) % Baso % (Auto) (0.0-0.5) % Neut # (Auto) (2.00-7.50) K/uL Lymph # (Auto) (1.50-4.00) K/uL [place] # (Auto) (0.20-0.80) K/uL Eos # (Auto) (0.04-0.40) K/uL Baso # (Auto) (0.02-0.10) K/uL APTT 25.2 (24.4-33.2) SECONDS Sodium (136-145) mmol/L Potassium (3.5-5.1) mmol/L Chloride (98-107) mmol/L Carbon Dioxide (21.0-32.0) mmol/L Anion Gap (5.0-15.0) mmol/L BUN (8-26) mg/dL Creatinine (0.70-1.30) mg/dL Est Cr Clr Drug Dosing Estimated GFR (MDRD) (>60) MLS/MIN BUN/Creatinine Ratio (6-25) Glucose (74-100) mg/dL Lactic Acid (0.90-1.70) mmol/L Calcium (8.5-10.1) mg/dL Total Bilirubin (0.0-1.0) mg/dL AST (15-37) U/L ALT (12-78) U/L Alkaline Phosphatase (46-116) U/L B-Natriuretic Peptide 76857 H D (0-125) pg/mL Total Protein (6.4-8.2) g/dL Albumin (3.4-5.0) g/dL Globulin (2.2-4.2) g/dL Albumin/Globulin Ratio (0.8-2.0) Urine Color Yellow Urine Appearance Clear (CLEAR) Urine pH 5.5 (5.0-8.0) Ur Specific [place] 1.025 (1.003-1.030) Urine Protein 100 H (NEGATIVE) mg/dL Urine Glucose (UA) Negative (NEGATIVE) mg/dL Urine Ketones Negative (NEGATIVE) mg/dL Urine Occult Blood Trace-intact H (NEGATIVE) Urine Nitrite Negative (NEGATIVE) Urine Bilirubin Small H (NEGATIVE) Urine Urobilinogen 1.0 (0.2-1.0) E.U./dL Ur Leukocyte Esterase Negative (NEGATIVE) Urine RBC 0-5 H /HPF Urine WBC Not seen /HPF Ur Squamous Epith Cells Few /HPF Urine Bacteria Not seen /HPF 10/16/18 Range/Units 07:05 WBC (4.0-11.0) K/uL RBC (4.50-6.50) M/uL Hgb (13.0-18.0) g/dL Hct (40.0-54.0) % MCV (76-96) fL MCH (27.0-32.0) pg MCHC (31.0-35.0) g/dL RDW (11.0-16.0) % Plt Count (150-400) K/uL MPV (6.0-10.0) fL Neut % (Auto) (45.0-70.0) % Lymph % (Auto) (20.0-40.0) % [place] % (Auto) (3.0-10.0) % Eos % (Auto) (1.0-5.0) % Baso % (Auto) (0.0-0.5) % Neut # (Auto) (2.00-7.50) K/uL Lymph # (Auto) (1.50-4.00) K/uL [place] # (Auto) (0.20-0.80) K/uL Eos # (Auto) (0.04-0.40) K/uL Baso # (Auto) (0.02-0.10) K/uL APTT (24.4-33.2) SECONDS Sodium 140 (136-145) mmol/L Potassium 4.1 (3.5-5.1) mmol/L Chloride 102 (98-107) mmol/L Carbon Dioxide 30.2 (21.0-32.0) mmol/L Anion Gap 11.9 (5.0-15.0) mmol/L BUN 41 H (8-26) mg/dL Creatinine 1.61 H D (0.70-1.30) mg/dL Est Cr Clr Drug Dosing TNP Estimated GFR (MDRD) 43 L (>60) MLS/MIN BUN/Creatinine Ratio 25.5 H (6-25) Glucose 136 H (74-100) mg/dL Lactic Acid (0.90-1.70) mmol/L Calcium 8.8 (8.5-10.1) mg/dL Total Bilirubin (0.0-1.0) mg/dL AST (15-37) U/L ALT (12-78) U/L Alkaline Phosphatase (46-116) U/L B-Natriuretic Peptide (0-125) pg/mL Total Protein (6.4-8.2) g/dL Albumin (3.4-5.0) g/dL Globulin (2.2-4.2) g/dL Albumin/Globulin Ratio (0.8-2.0) Urine Color Urine Appearance (CLEAR) Urine pH (5.0-8.0) Ur Specific [place] (1.003-1.030) Urine Protein (NEGATIVE) mg/dL Urine Glucose (UA) (NEGATIVE) mg/dL Urine Ketones (NEGATIVE) mg/dL Urine Occult Blood (NEGATIVE) Urine Nitrite (NEGATIVE) Urine Bilirubin (NEGATIVE) Urine Urobilinogen (0.2-1.0) E.U./dL Ur Leukocyte Esterase (NEGATIVE) Urine RBC /HPF Urine WBC /HPF Ur Squamous Epith Cells /HPF Urine Bacteria /HPF Med Orders - Current: Current Medications Albuterol/Ipratropium (Duoneb 3.0-0.5 Mg/3 Ml) 3 ml NEB Q4HR PRN PRN Reason: Shortness of Breath Levothyroxine Sodium (Synthroid) 50 mcg PO ACBREAKFAST [facility] Last Admin: 10/16/18 07:59 Dose: 50 mcg Prednisone (Prednisone) 40 mg PO DAILY [facility] Last Admin: 10/16/18 08:01 Dose: 40 mg Sodium Chloride (Saline Flush) 10 ml FLUSH ASDIRECTED PRN PRN Reason: Keep Vein Open Last Admin: 10/15/18 22:40 Dose: 10 ml Discontinued Medications Bumetanide (Bumex) 1 mg IVPUSH ONETIME ONE Stop: 10/15/18 19:14 Last Admin: 10/15/18 22:45 Dose: 1 mg Bumetanide (Bumex) Confirm Administered Dose 1 mg .ROUTE .STK-MED ONE Stop: 10/15/18 19:23 Last Admin: 10/15/18 23:02 Dose: Not Given Bumetanide (Bumex) 1 mg IVPUSH ONETIME ONE Stop: 10/15/18 20:17 Last Admin: 10/15/18 19:41 Dose: 1 mg Bumetanide (Bumex) 1 mg IVPUSH ONETIME ONE Stop: 10/16/18 13:46 Last Admin: 10/16/18 15:23 Dose: 1 mg Lidocaine HCl (Xylocaine 2% Jelly) Confirm Administered Dose 5 ml .ROUTE .STK- MED ONE Stop: 10/15/18 19:23 Last Admin: 10/15/18 23:38 Dose: Not Given Lidocaine HCl (Xylocaine 2% Jelly) 5 ml MUCMEM ONETIME ONE Stop: 10/15/18 19:23 Last Admin: 10/15/18 19:35 Dose: 5 ml - Exam Quality Assessment: Supplemental Oxygen, Urine Catheter General: Alert, Oriented, Cooperative, No Acute Distress HEENT: Pupils Equal, Pupils Reactive Neck: Supple Lungs: Normal Respiratory Effort, Decreased Breath Sounds Cardiovascular: Regular Rate, Regular Rhythm GI/Abdominal Exam: Soft, Non-Tender Back Exam: Normal Inspection, Full Range of Motion Skin: Warm Neurological: No New Focal Deficit Psy/Mental Status: Alert, Normal Affect, Normal Mood - Problem List & Annotations (1) Shortness of breath SNOMED Code(s): 381188643 Code(s): R06.02 - SHORTNESS OF BREATH Status: Acute Current Visit: Yes (2) Swelling of both lower extremities SNOMED Code(s): 421040781 Code(s): M79.89 - OTHER SPECIFIED SOFT TISSUE DISORDERS Status: Acute Current Visit: Yes - Problem List Review Problem List Initiated/Reviewed/Updated: Yes - My Orders Last 24 Hours: My Active Orders 10/15/18 19:15 Mcgrath Catheter Insertion [Insert Urinary Catheter] [OM.PC] Q24H 10/15/18 19:16 Urinary Catheter Assessment [RC] 08,20 Sodium Chloride 0.9% [Saline Flush] 10 ml FLUSH ASDIRECTED PRN Saline Lock Insert [OM.PC] Routine 10/15/18 20:10 Patient Status [ADT] Routine Height and Weight [RC] DAILY Oxygen Therapy [RC] 08 Up With Assistance [RC] ASDIRECTED Vital Signs [RC] Q4H 10/15/18 20:12 Intake and Output [RC] 06,18 10/15/18 20:13 Antiembolic Devices [RC] .Routine VTE/DVT Education [RC] Click to Edit Albuterol/Ipratropium [DuoNeb 3.0-0.5 MG/3 ML] 3 ml NEB Q4HR PRN DVT/VTE Prophylaxis Reflex [OM.PC] Per Unit Routine 10/15/18 20:18 Consult to Physical Therapy [PT Evaluation and Treatment] [CONS] Routine OT Evaluation and Treatment [CONS] Routine 10/16/18 07:00 Levothyroxine [Synthroid] 50 mcg PO ACBREAKFAST 10/16/18 08:00 predniSONE 40 mg PO DAILY 10/16/18 Breakfast Heart Healthy Diet [DIET] 10/17/18 08:00 BASIC METABOLIC PANEL,BMP [CHEM] Routine - Plan Plan:: Shortness of breath and swelling to legs is markedly improved, output of 3800 last night: Continue with Bumex IV today and repeat in am. Continue mcgrath catheter for accurate I/O and assist with sleep. Continuous oxygen per N/C. BMP in am Will start Oral Potassium Plan to discharge tomorrow.
[2018-10-16] MEDS: Potassium Chloride 20 MEQ Tab.ER PO SCH (17:20)
[2018-10-16] MEDS: Albuterol/Ipratropium 3.0-0.5 MG/3 ML Neb Soln NEB PRN (21:42)
[2018-10-17] MEDS: Albuterol/Ipratropium 3.0-0.5 MG/3 ML Neb Soln NEB PRN ×3 (04:15→22:00)
[2018-10-17] MEDS: Levothyroxine 50 MCG Tab PO SCH (07:35)
[2018-10-17] MEDS ORDERED: Bumetanide 1 MG/4 ML MDV IVPUSH ONE (08:00)
[2018-10-17] MEDS: Potassium Chloride 20 MEQ Tab.ER PO SCH (08:41)
[2018-10-17] MEDS: predniSONE 10 MG Tab PO SCH (08:42)
--- NOTE | 2018-10-17 10:48 | PCM.PN ---
- General Info Date of Service: 10/17/18 Admission Dx/Problem (Free Text): shortness of breath, edematous lower extremities Subjective Update: Pt states cough is better, less swelling to abdomen and legs, weeping drainage from legs continue. States he can't go home today, as he doesn't have his hot water heater on and needs help to turn it on. States he doesn't have a working cell phone to call anyone to assist him. States he came in by ambulance and now doesn't have a ride home. Functional Status: Reports: Pain Controlled, Tolerating Diet, Ambulating ( ambulating short distance in room), Incentive Spirometry - Review of Systems General: Reports: No Symptoms HEENT: Reports: Glasses. Denies: Sinus Congestion, Sore Throat Pulmonary: Reports: Cough Cardiovascular: Reports: Edema. Denies: Chest Pain, Palpitations Gastrointestinal: Denies: Abdominal Pain, Constipation Genitourinary: Reports: Other (mcgrath catheter in place) Musculoskeletal: Reports: Leg Pain (leg pain with standing) Skin: Reports: Other (drainage from legs) Neurological: Reports: No Symptoms Psychiatric: Reports: No Symptoms - Patient Data Vitals - Most Recent: Last Vital Signs Temp 99.1 F 10/17/18 04:30 Pulse 102 H 10/17/18 04:30 Resp 20 10/17/18 04:30 BP 117/71 10/17/18 04:30 Pulse Ox 92 L 10/17/18 04:30 Weight - Most Recent: 339 lb 6 oz I&O - Last 24 Hours: Intake & Output 10/16/18 10/17/18 10/17/18 22:59 06:59 14:59 Intake Total 1040 1000 Output Total 1350 1400 Balance -310 -400 Lab Results Last 24 Hours: Laboratory Results - last 24 hr 10/17/18 Range/Units 08:45 Sodium 140 (136-145) mmol/L Potassium 4.5 (3.5-5.1) mmol/L Chloride 102 (98-107) mmol/L Carbon Dioxide 32.8 H (21.0-32.0) mmol/L Anion Gap 9.7 (5.0-15.0) mmol/L BUN 38 H (8-26) mg/dL Creatinine 1.61 H (0.70-1.30) mg/dL Est Cr Clr Drug Dosing 46.35 mL/min Estimated GFR (MDRD) 43 L (>60) MLS/MIN BUN/Creatinine Ratio 23.6 (6-25) Glucose 135 H (74-100) mg/dL Calcium 8.8 (8.5-10.1) mg/dL Jan Results Last 24 Hours: Microbiology 10/15/18 Unknown MRSA Surveillance Culture - Preliminary Nares, Unspecified (Mrsa) Staphylococcus Aureus Med Orders - Current: Current Medications Albuterol/Ipratropium (Duoneb 3.0-0.5 Mg/3 Ml) 3 ml NEB Q4HR PRN PRN Reason: Shortness of Breath Last Admin: 10/17/18 04:15 Dose: 3 ml Bumetanide (Bumex) 1 mg PO BIDDIURETIC HANNAH Levothyroxine Sodium (Synthroid) 50 mcg PO ACBREAKFAST [facility] Last Admin: 10/17/18 07:35 Dose: 50 mcg Potassium Chloride (Klor-Con M20) 20 meq PO DAILY [facility] Last Admin: 10/17/18 08:41 Dose: 20 meq Prednisone (Prednisone) 40 mg PO DAILY [facility] Last Admin: 10/17/18 08:42 Dose: 40 mg Sodium Chloride (Saline Flush) 10 ml FLUSH ASDIRECTED PRN PRN Reason: Keep Vein Open Last Admin: 10/15/18 22:40 Dose: 10 ml Discontinued Medications Bumetanide (Bumex) 1 mg IVPUSH ONETIME ONE Stop: 10/15/18 19:14 Last Admin: 10/15/18 22:45 Dose: 1 mg Bumetanide (Bumex) Confirm Administered Dose 1 mg .ROUTE .STK-MED ONE Stop: 10/15/18 19:23 Last Admin: 10/15/18 23:02 Dose: Not Given Bumetanide (Bumex) 1 mg IVPUSH ONETIME ONE Stop: 10/15/18 20:17 Last Admin: 10/15/18 19:41 Dose: 1 mg Bumetanide (Bumex) 1 mg IVPUSH ONETIME ONE Stop: 10/16/18 13:46 Last Admin: 10/16/18 15:23 Dose: 1 mg Bumetanide (Bumex) 1 mg IVPUSH ONETIME ONE Stop: 10/17/18 08:01 Last Admin: 10/17/18 07:38 Dose: 1 mg Lidocaine HCl (Xylocaine 2% Jelly) Confirm Administered Dose 5 ml .ROUTE .STK- MED ONE Stop: 10/15/18 19:23 Last Admin: 10/15/18 23:38 Dose: Not Given Lidocaine HCl (Xylocaine 2% Jelly) 5 ml MUCMEM ONETIME ONE Stop: 10/15/18 19:23 Last Admin: 10/15/18 19:35 Dose: 5 ml - Exam Quality Assessment: Supplemental Oxygen (Has oxygen at home) General: Alert, Oriented, Other (refuses to go home) HEENT: Mucous Membr. Moist/Lyles Neck: Supple, Trachea Midline Lungs: Decreased Breath Sounds. No: Crackles, Rhonchi Cardiovascular: Regular Rate, Regular Rhythm GI/Abdominal Exam: Soft, Non-Tender (Male) Exam: Deferred Back Exam: Normal Inspection Extremities: Limited Range of Motion, Other (edema noted to lower extremities, edema up to thighs, bilaterally) Peripheral Pulses: 2+: Dorsalis Pedis (L), Dorsalis Pedis (R) Skin: Warm, Other (Drainage of yellow/clear fluid from lower legs. Blue pads to bed, staff report changing every 4-6 hour as needed) Neurological: No New Focal Deficit Psy/Mental Status: Alert, Normal Affect, Normal Mood - Problem List & Annotations (1) Shortness of breath SNOMED Code(s): 473603970 Code(s): R06.02 - SHORTNESS OF BREATH Status: Acute Current Visit: Yes (2) Swelling of both lower extremities SNOMED Code(s): 090797206 Code(s): M79.89 - OTHER SPECIFIED SOFT TISSUE DISORDERS Status: Acute Current Visit: Yes - Problem List Review Problem List Initiated/Reviewed/Updated: Yes - My Orders Last 24 Hours: My Active Orders 10/16/18 17:15 Potassium Chloride [Klor-Con M20] 20 meq PO DAILY 10/17/18 13:00 Bumetanide [Bumex] 1 mg PO BIDDIURETIC 10/18/18 08:00 BASIC METABOLIC PANEL,BMP [CHEM] Routine - Plan Plan:: 10-16-2018 Shortness of breath and swelling to legs is markedly improved, output of 3800 last night: Continue with Bumex IV today and repeat in am. Continue mcgrath catheter for accurate I/O and assist with sleep. Continuous oxygen per N/C. BMP in am Will start Oral Potassium Plan to discharge tomorrow. 10/17/2018 Shortness of breath is improving, cough is improving and edema to lower legs is improving. Weight loss of 9 pounds since admit. Edema continues up to thighs, decreasing in abdomen. Will D/C mcgrath catheter today. Bumex 1mg IV this am and Bumex 1 mg PO this afternoon. Continue with oral potassium. Electrolytes and creat. stable Pt to work on contacting friend to assist with discharge tomorrow. Plan to discharge tomorrow, if pt can set-up assist to get home.
[2018-10-17] MEDS: Bumetanide 1 MG Tab PO SCH ×2 (13:03→15:50)
[2018-10-17] MEDS: Sodium Chloride 0.9% 10 ML Syringe FLUSH PRN (22:26)
[2018-10-18] MEDS: Albuterol/Ipratropium 3.0-0.5 MG/3 ML Neb Soln NEB PRN (01:55)
[2018-10-18] MEDS: Levothyroxine 50 MCG Tab PO SCH (07:23)
[2018-10-18 07:44] VITALS: BP 114/66
[2018-10-18] MEDS: Potassium Chloride 20 MEQ Tab.ER PO SCH (08:36)
[2018-10-18] MEDS: predniSONE 10 MG Tab PO SCH (08:36)
[2018-10-18] MEDS: Bumetanide 1 MG Tab PO SCH (08:36)
[2018-10-18] MEDS: Sodium Chloride 0.9% 10 ML Syringe FLUSH PRN (08:39)
--- NOTE | 2018-10-18 14:53 | DISCH ---
HISTORY OF PRESENT ILLNESS: This 63-year-old male was here for problems with shortness of breath, CHF exacerbation, and an allergic reaction questionably to Lasix or phentermine or combination of the two. The patient had significant edema of both lower legs with some weeping. He has been using Bumex. The patient has been on oxygen at 3 L, which keeps his sats in the upper 90s or mid to upper 90s, I should say, and he has been doing good. His vitals have been stable. Labs have been good. Vital signs this morning, temp 98.7, blood pressure 114/66, pulse 99, O2 sats 92% last checked on 3 L. Upon entering the room, the patient was watching TV quietly. He is in no obvious distress. He tells me that he has made some plans to go home. Today, he has a friend that he called from [place] who is planning on coming up here and helping the patient get home and get settled in. He feels today that once he gets home and gets things arranged that he will do okay. He mentions some trouble possibly getting in and out of his truck, but he can get in and use his friend's vehicle who will take him home. PHYSICAL EXAMINATION: Today examining the patient's lower legs reveals he still has approximately 2+ edema of both ankles. It radiates up into the right calf muscle. There is some weeping from the right calf muscle area posterior that is yellowish in color. The lower legs are dusky with a lot of venous insufficiency as well. LUNGS: Clear today. CARDIAC: Heart sounds are distinct without murmurs. ABDOMEN: Soft, nontender to palpation. Bowel sounds are present. PLAN: The patient will be discharged today. He plans on staying on Bumex and the patient does need to follow up with his primary care provider next week, which is Dr. Treviño for recheck. CRS/MODL /[id number]
== END 2018-10-18 13:05 | disposition home or self-care (01) | DRG 293 ==
LOC: LB.ED 16:57 → LB.MS 19:45 → UNDOADMIN 19:45 → LB.MS 20:10
PROVIDERS: ADMIT Nurse Practitioner Family; ATTEND Nurse Practitioner Family
DX: I50.9 Heart failure, unspecified (principal); R60.9 Edema, unspecified; T50.1X5A Adverse effect of loop [high-ceiling] diuretics, initial encounter; T50.5X5A Adverse effect of appetite depressants, initial encounter; Y92.009 Unspecified place in unspecified non-institutional (private) residence as the place of occurrence of the external cause; J44.9 Chronic obstructive pulmonary disease, unspecified; E03.9 Hypothyroidism, unspecified; Z99.81 Dependence on supplemental oxygen; H54.7 Unspecified visual loss; K59.09 Other constipation; Z86.19 Personal history of other infectious and parasitic diseases; Z79.52 Long term (current) use of systemic steroids; Z88.8 Allergy status to other drugs, medicaments and biological substances
CPT/HCPCS: 36415; 51702; 71045; 80048; 80053; 81001; 83605; 83880; 85025; 85730; 96374; 97110-GO; 97165-GO; 99285-25; A0425; A0429; A9270-GY; J3490; J7620-GY

== ENCOUNTER 2018-10-22 03:46 | Inpatient (IN) | payer MEDICAID ==
[2018-10-22] MEDS ORDERED: Sodium Chloride 0.9% 10 ML Syringe FLUSH PRN (05:31)
--- NOTE | 2018-10-22 05:42 | EDM.PDOC ---
ED HPI GENERAL MEDICAL PROBLEM - General Chief Complaint: General Stated Complaint: CHEST PAIN Time Seen by Provider: 10/22/18 05:15 Source of Information: Reports: Patient, EMS, Old Records History Limitations: Reports: No Limitations - History of Present Illness INITIAL COMMENTS - FREE TEXT/NARRATIVE: This is a 63yo M here for shortness of breath that started around 2 am and worsened for the next few hours and feeling palpitations starting at 2 am. He has been having lower leg swelling and redness with the right lower leg that is worse. He has not had any heart issues in the past. He has been short of breath but it is now worse. Patient has been having chills since midnight. Onset: Gradual Duration: Hour(s):, Getting Worse Location: Reports: Chest Severity: Moderate Improves with: Reports: None Worsens with: Reports: Movement Associated Symptoms: Reports: Fever/Chills, Shortness of Breath, Weakness Treatments [employer]AND [employer]OL WORKER: Reports: Breathing Treatments - Related Data Allergies Allergy/AdvReac Type Severity Reaction Status Date / Time furosemide [From Lasix] Allergy Rash Verified 10/22/18 06:20 phentermine Allergy Edema Verified 10/22/18 06:20 Home Meds: Home Meds Levothyroxine [Synthroid] 50 mcg PO ACBREAKFAST 04/06/15 [History] Ipratropium/Albuterol Sulfate [Iprat-Albut 0.5-3(2.5) mg/3 ml] 3 ml IN Q4HR PRN 07/31/18 [History] Testosterone Cypionate 400 mg IM ASDIRECTED 07/31/18 [History] predniSONE [Prednisone] 50 mg PO DAILY 10/15/18 [History] Bumetanide 1 mg PO DAILY #30 tablet 10/16/18 [Rx] Past Medical History HEENT History: Reports: Impaired Vision Respiratory History: Reports: COPD Gastrointestinal History: Reports: Chronic Constipation, Other (See Below) Other Gastrointestinal History: hernia Genitourinary History: Reports: Other (See Below) Other Genitourinary History: hypogonadism Endocrine/Metabolic History: Reports: Hypothyroidism - Infectious Disease History Infectious Disease History: Reports: Hepatitis C - Past Surgical History HEENT Surgical History: Reports: None Respiratory Surgical History: Reports: None GI Surgical History: Reports: Hernia, Inguinal Male Surgical History: Reports: None Social & Family History - Caffeine Use Caffeine Use: Reports: Coffee ED ROS GENERAL - Review of Systems Review Of Systems: ROS reveals no pertinent complaints other than HPI. ED EXAM, GENERAL - Physical Exam Exam: See Below Exam Limited By: No Limitations General Appearance: Alert, WD/WN, Mild Distress Eye Exam: Bilateral Eye: EOMI, PERRL Ears: Normal External Exam Nose: Normal Inspection Throat/Mouth: Normal Inspection Head: Atraumatic, Normocephalic Neck: Normal Inspection, Supple, Non-Tender Respiratory/Chest: Rhonchi Cardiovascular: Tachycardia Peripheral Pulses: 2+: Dorsalis Pedis (L), Dorsalis Pedis (R) GI/Abdominal: Normal Bowel Sounds Back Exam: Normal Inspection Extremities: Normal Inspection Neurological: Alert, Oriented, CN II-XII Intact Skin Exam: Erythema (lower legs), Increased Warmth Course - Vital Signs Last Recorded V/S: Last Vital Signs Temp 36.3 C 10/22/18 05:11 Pulse 138 H 10/22/18 05:11 Resp 20 10/22/18 05:11 BP 94/69 10/22/18 05:11 Pulse Ox 92 L 10/22/18 05:11 - Orders/Labs/Meds Orders: Active Orders 24 hr Category Date Time Status Patient Status [ADT] Routine ADT 10/22/18 06:56 Ordered EKG Documentation Completion [RC] ASDIRECTED Care 10/22/18 05:30 Active Oxygen Therapy [RC] PRN Care 10/22/18 06:56 Ordered VTE/DVT Education [RC] Per Unit Routine Care 10/22/18 06:56 Ordered Vital Signs [RC] Q4H Care 10/22/18 06:56 Ordered Regular Diet [DIET] Diet 10/22/18 Breakfast Ordered Chest 1V Frontal [CR] Stat Exams 10/22/18 05:29 Ordered BASIC METABOLIC PANEL,BMP [CHEM] AM Lab 10/23/18 05:11 Ordered BASIC METABOLIC PANEL,BMP [CHEM] AM Lab 10/24/18 05:11 Ordered BASIC METABOLIC PANEL,BMP [CHEM] AM Lab 10/25/18 05:11 Ordered CBC WITH AUTO DIFF [HEME] AM Lab 10/23/18 05:11 Ordered CBC WITH AUTO DIFF [HEME] AM Lab 10/24/18 05:11 Ordered CBC WITH AUTO DIFF [HEME] AM Lab 10/25/18 05:11 Ordered CULTURE BLOOD [BC] Stat Lab 10/22/18 06:56 Ordered CULTURE BLOOD [BC] Stat Lab 10/22/18 07:11 Ordered Albuterol/Ipratropium [DuoNeb 3.0-0.5 MG/3 ML] Med 10/22/18 06:59 Ordered 3 ml INH Q4HR PRN Levothyroxine [Synthroid] Med 10/22/18 07:00 Ordered 50 mcg PO ACBREAKFAST Ondansetron [Zofran] Med 10/22/18 06:56 Ordered 4 mg IV Q6H PRN Sodium Chloride 0.9% [Saline Flush] Med 10/22/18 05:31 Active 10 ml FLUSH ASDIRECTED PRN Peripheral IV Insertion Adult [OM.PC] Routine Oth 10/22/18 05:31 Ordered Resuscitation Status Routine Resus Stat 10/22/18 06:56 Ordered EKG 12 Lead [EK] Routine Ther 10/22/18 05:30 Ordered Medication Orders Ondansetron HCl (Zofran) 4 mg IV Q6H PRN PRN Reason: Nausea/Vomiting Sodium Chloride (Saline Flush) 10 ml FLUSH ASDIRECTED PRN PRN Reason: Keep Vein Open Labs: Laboratory Tests 10/22/18 10/22/18 10/22/18 Range/Units 06:15 06:15 06:15 WBC 19.3 H D (4.0-11.0) K/uL RBC 5.99 (4.50-6.50) M/uL Hgb 16.8 (13.0-18.0) g/dL Hct 51.0 (40.0-54.0) % MCV 85 (76-96) fL MCH 28.0 (27.0-32.0) pg MCHC 32.9 (31.0-35.0) g/dL RDW 21.9 H (11.0-16.0) % Plt Count 116 L (150-400) K/uL MPV 11.9 H (6.0-10.0) fL Neut % (Auto) 92.1 H (45.0-70.0) % Lymph % (Auto) 3.3 L (20.0-40.0) % Terry % (Auto) 4.2 (3.0-10.0) % Eos % (Auto) 0.3 L (1.0-5.0) % Baso % (Auto) 0.1 (0.0-0.5) % Neut # (Auto) 17.76 H (2.00-7.50) K/uL Lymph # (Auto) 0.63 L (1.50-4.00) K/uL Terry # (Auto) 0.81 H (0.20-0.80) K/uL Eos # (Auto) 0.06 (0.04-0.40) K/uL Baso # (Auto) 0.01 L (0.02-0.10) K/uL VBG pH (7.31-7.41) VBG pCO2 (41-51) mm/Hg VBG pO2 (30-50) mm/Hg VBG HCO3 (23.0-28.0) mmol/L VBG O2 Saturation (60-85) % VBG Base Excess (-2-3) mm/L O2 Delivery Device Sodium 139 (136-145) mmol/L Potassium 3.6 (3.5-5.1) mmol/L Chloride 100 (98-107) mmol/L Carbon Dioxide 34.3 H (21.0-32.0) mmol/L Anion Gap 8.3 (5.0-15.0) mmol/L BUN 41 H D (8-26) mg/dL Creatinine 1.39 H (0.70-1.30) mg/dL Est Cr Clr Drug Dosing TNP Estimated GFR (MDRD) 51 L (>60) MLS/MIN BUN/Creatinine Ratio 29.5 H (6-25) Glucose 187 H D (74-100) mg/dL Lactic Acid 2.43 H (0.90-1.70) mmol/L Calcium 8.9 (8.5-10.1) mg/dL Total Bilirubin 2.3 H (0.0-1.0) mg/dL AST 30 (15-37) U/L ALT 24 (12-78) U/L Alkaline Phosphatase 86 (46-116) U/L B-Natriuretic Peptide 58244 H (0-125) pg/mL Total Protein 6.8 (6.4-8.2) g/dL Albumin 2.6 L (3.4-5.0) g/dL Globulin 4.2 (2.2-4.2) g/dL Albumin/Globulin Ratio 0.6 L (0.8-2.0) 10/22/18 Range/Units 06:15 WBC (4.0-11.0) K/uL RBC (4.50-6.50) M/uL Hgb (13.0-18.0) g/dL Hct (40.0-54.0) % MCV (76-96) fL MCH (27.0-32.0) pg MCHC (31.0-35.0) g/dL RDW (11.0-16.0) % Plt Count (150-400) K/uL MPV (6.0-10.0) fL Neut % (Auto) (45.0-70.0) % Lymph % (Auto) (20.0-40.0) % Terry % (Auto) (3.0-10.0) % Eos % (Auto) (1.0-5.0) % Baso % (Auto) (0.0-0.5) % Neut # (Auto) (2.00-7.50) K/uL Lymph # (Auto) (1.50-4.00) K/uL Terry # (Auto) (0.20-0.80) K/uL Eos # (Auto) (0.04-0.40) K/uL Baso # (Auto) (0.02-0.10) K/uL VBG pH 7.46 H (7.31-7.41) VBG pCO2 46 (41-51) mm/Hg VBG pO2 15 L (30-50) mm/Hg VBG HCO3 32.0 H (23.0-28.0) mmol/L VBG O2 Saturation 19 L (60-85) % VBG Base Excess 7 H (-2-3) mm/L O2 Delivery Device Nasal cannula Sodium (136-145) mmol/L Potassium (3.5-5.1) mmol/L Chloride (98-107) mmol/L Carbon Dioxide (21.0-32.0) mmol/L Anion Gap (5.0-15.0) mmol/L BUN (8-26) mg/dL Creatinine (0.70-1.30) mg/dL Est Cr Clr Drug Dosing Estimated GFR (MDRD) (>60) MLS/MIN BUN/Creatinine Ratio (6-25) Glucose (74-100) mg/dL Lactic Acid (0.90-1.70) mmol/L Calcium (8.5-10.1) mg/dL Total Bilirubin (0.0-1.0) mg/dL AST (15-37) U/L ALT (12-78) U/L Alkaline Phosphatase (46-116) U/L B-Natriuretic Peptide (0-125) pg/mL Total Protein (6.4-8.2) g/dL Albumin (3.4-5.0) g/dL Globulin (2.2-4.2) g/dL Albumin/Globulin Ratio (0.8-2.0) Meds: Medications Generic Name Dose Route Start Last Admin Trade Name Freq PRN Reason Stop Dose Admin Ondansetron HCl 4 mg 10/22/18 06:56 Zofran IV Q6H PRN Nausea/Vomiting Sodium Chloride 10 ml 10/22/18 05:31 Saline Flush FLUSH ASDIRECTED PRN Keep Vein Open Departure - Departure Time of Disposition: 07:15 Disposition: Admitted As Inpatient 65 Condition: Fair Clinical Impression: SIRS (systemic inflammatory response syndrome), Cellulitis and abscess of leg - Discharge Information Forms: ED Department Discharge - My Orders Last 24 Hours: My Active Orders 10/22/18 05:29 Chest 1V Frontal [CR] Stat 10/22/18 05:30 EKG Documentation Completion [RC] ASDIRECTED EKG 12 Lead [EK] Routine 10/22/18 05:31 Sodium Chloride 0.9% [Saline Flush] 10 ml FLUSH ASDIRECTED PRN Peripheral IV Insertion Adult [OM.PC] Routine 10/22/18 06:56 Patient Status [ADT] Routine Oxygen Therapy [RC] PRN VTE/DVT Education [RC] Per Unit Routine Vital Signs [RC] Q4H CULTURE BLOOD [BC] Stat Ondansetron [Zofran] 4 mg IV Q6H PRN Resuscitation Status Routine 10/22/18 06:59 Albuterol/Ipratropium [DuoNeb 3.0-0.5 MG/3 ML] 3 ml INH Q4HR PRN 10/22/18 07:00 Levothyroxine [Synthroid] 50 mcg PO ACBREAKFAST 10/22/18 07:11 CULTURE BLOOD [BC] Stat 10/22/18 Breakfast Regular Diet [DIET] 10/23/18 05:11 BASIC METABOLIC PANEL,BMP [CHEM] AM CBC WITH AUTO DIFF [HEME] AM 10/24/18 05:11 BASIC METABOLIC PANEL,BMP [CHEM] AM CBC WITH AUTO DIFF [HEME] AM 10/25/18 05:11 BASIC METABOLIC PANEL,BMP [CHEM] AM CBC WITH AUTO DIFF [HEME] AM - Assessment/Plan Last 24 Hours: My Active Orders 10/22/18 05:29 Chest 1V Frontal [CR] Stat 10/22/18 05:30 EKG Documentation Completion [RC] ASDIRECTED EKG 12 Lead [EK] Routine 10/22/18 05:31 Sodium Chloride 0.9% [Saline Flush] 10 ml FLUSH ASDIRECTED PRN Peripheral IV Insertion Adult [OM.PC] Routine 10/22/18 06:56 Patient Status [ADT] Routine Oxygen Therapy [RC] PRN VTE/DVT Education [RC] Per Unit Routine Vital Signs [RC] Q4H CULTURE BLOOD [BC] Stat Ondansetron [Zofran] 4 mg IV Q6H PRN Resuscitation Status Routine 10/22/18 06:59 Albuterol/Ipratropium [DuoNeb 3.0-0.5 MG/3 ML] 3 ml INH Q4HR PRN 10/22/18 07:00 Levothyroxine [Synthroid] 50 mcg PO ACBREAKFAST 10/22/18 07:11 CULTURE BLOOD [BC] Stat 10/22/18 Breakfast Regular Diet [DIET] 10/23/18 05:11 BASIC METABOLIC PANEL,BMP [CHEM] AM CBC WITH AUTO DIFF [HEME] AM 10/24/18 05:11 BASIC METABOLIC PANEL,BMP [CHEM] AM CBC WITH AUTO DIFF [HEME] AM 10/25/18 05:11 BASIC METABOLIC PANEL,BMP [CHEM] AM CBC WITH AUTO DIFF [HEME] AM
[2018-10-22] MEDS ORDERED: Ondansetron 4 MG/2 ML SDV IV PRN (06:56)
[2018-10-22] MEDS ORDERED: Albuterol/Ipratropium 3.0-0.5 MG/3 ML Neb Soln INH PRN (06:59)
[2018-10-22] MEDS ORDERED: Levothyroxine 50 MCG Tab PO SCH (07:00)
[2018-10-22] MEDS ORDERED: Metoprolol Tartrate 5 MG/5 ML SDV IVPUSH ONE (07:02)
[2018-10-22] MEDS: Sodium Chloride 0.9% 1,000 ML IV SCH ×2 (08:26→12:47)
[2018-10-22] MEDS: Piperacillin/Tazobactam 4.5 GM in Sodium Chloride 0.9% 100 ML IV SCH ×2 (09:05→16:02)
[2018-10-22] MEDS ORDERED: Sodium Chloride 0.9% 500 ML IV ONE (11:05)
[2018-10-22] MEDS ORDERED: oxyCODONE 5 MG Tab ONE (11:59)
[2018-10-22] MEDS ORDERED: oxyCODONE 5 MG Tab PO ONE (12:07)
--- NOTE | 2018-10-22 12:12 | CR ---
DATE OF SERVICE: 10/22/18 CLINICAL DATA: shortness of breath FRONTAL VIEW OF THE CHEST: Comparison is made to a prior exam dated 10/15/18. The heart remains enlarged, unchanged. The pulmonary vascular congestion and bilateral pulmonary edema appears slightly improved. There is blunting of both costophrenic angles consistent with bilateral pleural effusions. The exam is otherwise unchanged from the prior. [id number] [facility]
[2018-10-22 15:53] VITALS: BP 106/78
--- NOTE | 2018-10-22 17:05 | PCM.DCSUM1 ---
Discharge Summary - Discharge Data Discharge Date: 10/22/18 Discharge Disposition: DC/Tfer to Acute Hospital 02 Condition: Stable - Discharge Plan Home Medications: Home Meds Levothyroxine [Synthroid] 50 mcg PO ACBREAKFAST 04/06/15 [History] Ipratropium/Albuterol Sulfate [Iprat-Albut 0.5-3(2.5) mg/3 ml] 3 ml IN Q4HR PRN 07/31/18 [History] Testosterone Cypionate 400 mg IM ASDIRECTED 07/31/18 [History] predniSONE [Prednisone] 50 mg PO DAILY 10/15/18 [History] Bumetanide 1 mg PO DAILY #30 tablet 10/16/18 [Rx] Forms: ED Department Discharge - Discharge Summary/Plan Comment DC Time >30 min.: Yes Discharge Summary/Plan Comment: Patient to be transferred to for further evaluation and management in ICU. Patient counseled on plan of care and management and agrees with transfer. Patient continues to have atrial flutter with low BP and lightheadedness. He has an elevated WBC with likely tachycardia but overlap with some atrial flutter. He has stable shortness of breath but is on 5 L oxygen to maintain 90-92% vs his baseline of 3 L at home to maintain 92-95%. He does have an appointment with pulmonology this month. His cellulitis does appear improved with the current course of antibiotics. The leg weeping has improved as well. Dr. Borrero will assume care at [facility]. - Patient Data Vitals - Most Recent: Last Vital Signs Temp 36.9 C 10/22/18 15:52 Pulse 140 H 10/22/18 15:52 Resp 16 10/22/18 15:52 BP 106/78 10/22/18 15:52 Pulse Ox 88 L 10/22/18 15:52 Weight - Most Recent: 154.947 kg Lab Results - Last 24 hrs: Laboratory Results - last 24 hr 10/22/18 10/22/18 10/22/18 Range/Units 06:15 06:15 06:15 WBC 19.3 H D (4.0-11.0) K/uL RBC 5.99 (4.50-6.50) M/uL Hgb 16.8 (13.0-18.0) g/dL Hct 51.0 (40.0-54.0) % MCV 85 (76-96) fL MCH 28.0 (27.0-32.0) pg MCHC 32.9 (31.0-35.0) g/dL RDW 21.9 H (11.0-16.0) % Plt Count 116 L (150-400) K/uL MPV 11.9 H (6.0-10.0) fL Neut % (Auto) 92.1 H (45.0-70.0) % Lymph % (Auto) 3.3 L (20.0-40.0) % Greene % (Auto) 4.2 (3.0-10.0) % Eos % (Auto) 0.3 L (1.0-5.0) % Baso % (Auto) 0.1 (0.0-0.5) % Neut # (Auto) 17.76 H (2.00-7.50) K/uL Lymph # (Auto) 0.63 L (1.50-4.00) K/uL Greene # (Auto) 0.81 H (0.20-0.80) K/uL Eos # (Auto) 0.06 (0.04-0.40) K/uL Baso # (Auto) 0.01 L (0.02-0.10) K/uL VBG pH (7.31-7.41) VBG pCO2 (41-51) mm/Hg VBG pO2 (30-50) mm/Hg VBG HCO3 (23.0-28.0) mmol/L VBG O2 Saturation (60-85) % VBG Base Excess (-2-3) mm/L O2 Delivery Device Sodium 139 (136-145) mmol/L Potassium 3.6 (3.5-5.1) mmol/L Chloride 100 (98-107) mmol/L Carbon Dioxide 34.3 H (21.0-32.0) mmol/L Anion Gap 8.3 (5.0-15.0) mmol/L BUN 41 H D (8-26) mg/dL Creatinine 1.39 H (0.70-1.30) mg/dL Est Cr Clr Drug Dosing TNP Estimated GFR (MDRD) 51 L (>60) MLS/MIN BUN/Creatinine Ratio 29.5 H (6-25) Glucose 187 H D (74-100) mg/dL Lactic Acid 2.43 H (0.90-1.70) mmol/L Calcium 8.9 (8.5-10.1) mg/dL Total Bilirubin 2.3 H (0.0-1.0) mg/dL AST 30 (15-37) U/L ALT 24 (12-78) U/L Alkaline Phosphatase 86 (46-116) U/L B-Natriuretic Peptide 36689 H (0-125) pg/mL Total Protein 6.8 (6.4-8.2) g/dL Albumin 2.6 L (3.4-5.0) g/dL Globulin 4.2 (2.2-4.2) g/dL Albumin/Globulin Ratio 0.6 L (0.8-2.0) 10/22/18 10/22/18 Range/Units 06:15 11:35 WBC (4.0-11.0) K/uL RBC (4.50-6.50) M/uL Hgb (13.0-18.0) g/dL Hct (40.0-54.0) % MCV (76-96) fL MCH (27.0-32.0) pg MCHC (31.0-35.0) g/dL RDW (11.0-16.0) % Plt Count (150-400) K/uL MPV (6.0-10.0) fL Neut % (Auto) (45.0-70.0) % Lymph % (Auto) (20.0-40.0) % Greene % (Auto) (3.0-10.0) % Eos % (Auto) (1.0-5.0) % Baso % (Auto) (0.0-0.5) % Neut # (Auto) (2.00-7.50) K/uL Lymph # (Auto) (1.50-4.00) K/uL Greene # (Auto) (0.20-0.80) K/uL Eos # (Auto) (0.04-0.40) K/uL Baso # (Auto) (0.02-0.10) K/uL VBG pH 7.46 H (7.31-7.41) VBG pCO2 46 (41-51) mm/Hg VBG pO2 15 L (30-50) mm/Hg VBG HCO3 32.0 H (23.0-28.0) mmol/L VBG O2 Saturation 19 L (60-85) % VBG Base Excess 7 H (-2-3) mm/L O2 Delivery Device Nasal cannula Sodium (136-145) mmol/L Potassium (3.5-5.1) mmol/L Chloride (98-107) mmol/L Carbon Dioxide (21.0-32.0) mmol/L Anion Gap (5.0-15.0) mmol/L BUN (8-26) mg/dL Creatinine (0.70-1.30) mg/dL Est Cr Clr Drug Dosing Estimated GFR (MDRD) (>60) MLS/MIN BUN/Creatinine Ratio (6-25) Glucose (74-100) mg/dL Lactic Acid 2.37 H (0.90-1.70) mmol/L Calcium (8.5-10.1) mg/dL Total Bilirubin (0.0-1.0) mg/dL AST (15-37) U/L ALT (12-78) U/L Alkaline Phosphatase (46-116) U/L B-Natriuretic Peptide (0-125) pg/mL Total Protein (6.4-8.2) g/dL Albumin (3.4-5.0) g/dL Globulin (2.2-4.2) g/dL Albumin/Globulin Ratio (0.8-2.0) CARLOS Results - Last 24 hrs: Microbiology 10/22/18 06:15 Influenza Type A Antigen Screen - Final Nasal Aspirate, Unspecified NEGATIVE INFLUENZA A VIRUS AG REFERENCE RANGE: NEGATIVE Influenza Type B Antigen Screen - Final NEGATIVE INFLUENZA B VIRUS AG REFERENCE RANGE: NEGATIVE Med Orders - Current: Current Medications Discontinued Medications Albuterol/Ipratropium (Duoneb 3.0-0.5 Mg/3 Ml) 3 ml INH Q4HR PRN PRN Reason: Shortness of Breath Sodium Chloride (Normal Saline) 1,000 mls @ 150 mls/hr IV ASDIRECTED [facility] Last Admin: 10/22/18 12:47 Dose: 150 mls/hr Piperacillin Sod/Tazobactam (Sod 4.5 gm/ Sodium Chloride) 100 mls @ 200 mls/hr IV Q6H [facility]ANNA[facility] Last Admin: 10/22/18 16:02 Dose: 200 mls/hr Sodium Chloride (Normal Saline) 500 mls @ 999 mls/hr IV BOLUS ONE Stop: 10/22/18 11:35 Last Admin: 10/22/18 11:04 Dose: 999 mls/hr Levothyroxine Sodium (Synthroid) 50 mcg PO ACBREAKFAST [facility]ANNA[facility] Last Admin: 10/22/18 10:39 Dose: 50 mcg Metoprolol Tartrate (Lopressor) 5 mg IVPUSH ONETIME ONE Stop: 10/22/18 07:03 Last Admin: 10/22/18 10:08 Dose: Not Given Ondansetron HCl (Zofran) 4 mg IV Q6H PRN PRN Reason: Nausea/Vomiting Oxycodone HCl (Oxycodone) Confirm Administered Dose 5 mg .ROUTE .STK-MED ONE Stop: 10/22/18 12:00 Last Admin: 10/22/18 12:58 Dose: 5 mg Oxycodone HCl (Oxycodone) 5 mg PO ONETIME ONE Stop: 10/22/18 12:08 Sodium Chloride (Saline Flush) 10 ml FLUSH ASDIRECTED PRN PRN Reason: Keep Vein Open
== END 2018-10-22 16:45 | DRG 603 ==
LOC: LB.ED 03:46 → LB.MS 06:56 → UNDODISIN 16:45
PROVIDERS: ADMIT Family Medicine; ATTEND Family Medicine
DX: L03.115 Cellulitis of right lower limb (principal); R65.10 Systemic inflammatory response syndrome (SIRS) of non-infectious origin without acute organ dysfunction; I48.92 Unspecified atrial flutter; R42 Dizziness and giddiness; I95.9 Hypotension, unspecified; E03.9 Hypothyroidism, unspecified; K59.09 Other constipation; J44.9 Chronic obstructive pulmonary disease, unspecified; H54.7 Unspecified visual loss; Z86.19 Personal history of other infectious and parasitic diseases; Z88.8 Allergy status to other drugs, medicaments and biological substances; Z79.52 Long term (current) use of systemic steroids; R06.02 Shortness of breath; M79.89 Other specified soft tissue disorders
CPT/HCPCS: 36415; 71045; 80053; 82803; 83605; 83880; 85025; 87040; 87804; 93005; 99285-25; A0425; A0429; A9270-GY; J2543; J7030